=== PATIENT | female | born 1975 | race Caucasian/White ===

== ENCOUNTER 2018-09-17 15:43 | Emergency (ER) | payer OTHER, SELFPAY ==
[2018-09-17 15:49] VITALS: BP 151/77; PULSE 65; RESP 18; TEMP 36.3; O2SAT 97
--- NOTE | 2018-09-17 16:58 | W.ED.GENAD ---
Discharge Plan Disposition Patient Disposition: HOME Discharge Details Chief Complaint: Laceration Primary Care Provider: Mariely Edmonds ED Provider: Karlo Salgado Home Meds and New Rx's Prescriptions: New levofloxacin 500 mg tablet 500 mg PO DAILY Qty: 3 RF: 0 Continued estradiol-norethindrone acet [Activella] 1 EACH tablet 1 tab-cap PO DAILY Qty: 90 RF: 0 montelukast [Singulair] 10 MG tablet 10 mg PO DAILY RF: 0 ProAir HFA 8.5 GM HFA aerosol inhaler 8.5 gm Inhalation DIRECTED PRNRF: 0 Discharge Data Discharge Date/Time-TO BE ENTERED AT DEPARTURE: 09/17/18 17:16 Medical Decision Making Patient here for plantar puncture wound that occurred approximately 14 hours prior to arrival. Patient states intact toothpick was removed from the site but throughout the day swelling and pain has worsened. Bedside ultrasound was utilized to attempt to visualize any retained foreign body given that is non-radiopaque and none was able to be visualized. Did discuss with patient risk versus benefit of exploration of the wound for any potential foreign body which she refused exploration at this time so we agreed upon antibiotic therapy with close observation for patient to return. Patient placed up on Levaquin 500mg daily for 4 days. After discussion of diagnosis and plan of care patient has no further needs, questions, or concerns and states clear understanding to return to the emergency department for any worsening symptoms. HPI General Mode of arrival: ambulatory. Date/Time Provider Initiated Documentation: 09/17/18 16:10. Limitations to Documentation: no limitations. Information obtained by: patient and RN notes reviewed. History of Present Illness 43 year old F presents to the emergency department with the chief complaint of Right foot puncture wound, described as moderate, with intensity rated at 6. Quality is described as aching, and is localized to the right and lower extremity. Patient reports no radiation. Patient started experiencing this hour(s) (14) and it has been constant. No relieving factors improve symptom(s), No exacerbating factors reported . Patient notes no other symptoms.. Patient did receive the following treatments prior to arrival, none Related Data Home Medications Medication Instructions Recorded Confirmed ProAir HFA 8.5 gm INHALATION DIRECTED PRN 05/18/17 09/17/18 montelukast [Singulair] 10 mg PO DAILY 05/18/17 09/17/18 estradiol-norethindrone acet 1 tab-cap PO DAILY #90 tab 05/05/18 09/17/18 [Activella] levofloxacin 500 mg PO DAILY #3 tab 09/17/18 Previous Rx's Medication Instructions Recorded estradiol-norethindrone acet 1 tab-cap PO DAILY #90 tab 05/05/18 [Activella] levofloxacin 500 mg PO DAILY #3 tab 09/17/18 Allergies Allergy/AdvReac Type Severity Reaction Status Date / Time No Known Drug Allergies Allergy Unverified 09/17/18 15:53 General Stated Complaint: Laceration DESMOND: 4 Review of Systems Cardiovascular Denies syncope and Denies lightheadedness Musculoskeletal Reports as per HPI, Denies deformity, Reports limited range of motion and Denies numbness Integumentary/Breasts Reports as per HPI Neurologic Denies syncope and Denies numbness PFSH Social History Smoking/Tobacco Use Status: Never Exam Const General: cooperative and no acute distress Orientation: alert, awake and oriented x3 Limitations: mental status not altered Resp Effort & Inspection: normal respiratory effort and able to speak in complete sentences Cardio Rate: regular rate Rhythm: regular rhythm Extrem General: normal exam except as noted Right lower extremity: foot Details: normal capillary refill, tenderness Location: of the great toe Location: along the plantar aspect, abnormal ROM of toe Details: pain with active ROM Location: of the great toe, puncture wound (Base of great toe on the plantar surface), vascular exam Details: dorsalis pedis pulse present, posterior tibial pulse present and normal capillary refill and other (Patient does have swelling surrounding the base of great toe) Course Vital Signs Temperature 36.3 C L 09/17/18 15:49 Pulse 65 09/17/18 15:49 Respiratory Rate 18 09/17/18 15:49 Blood Pressure 151/77 H 09/17/18 15:49 Pulse Oximetry 97 09/17/18 15:49 Temperature 36.3 C L 09/17/18 15:49 Temperature Source Skin 09/17/18 15:49 Pulse 65 09/17/18 15:49 Respiratory Rate 18 09/17/18 15:49 Respiratory Effort 09/17/18 15:51 Blood Pressure 151/77 H 09/17/18 15:49 Blood Pressure Position Sitting 09/17/18 15:49 Pulse Oximetry 97 09/17/18 15:49 Pain Level 6 09/17/18 15:49 Comment 09/17/18 15:49
--- NOTE | 2018-09-17 17:01 | ED.GENADUL_ITS ---
Discharge Plan Disposition Patient Disposition: HOME Discharge Details Chief Complaint: Laceration Primary Care Provider: Mariely Edmonds ED Provider: Karlo Salgado Home Meds and New Rx's Prescriptions: New levofloxacin 500 mg tablet 500 mg PO DAILY Qty: 3 RF: 0 Continued estradiol-norethindrone acet [Activella] 1 EACH tablet 1 tab-cap PO DAILY Qty: 90 RF: 0 montelukast [Singulair] 10 MG tablet 10 mg PO DAILY RF: 0 ProAir HFA 8.5 GM HFA aerosol inhaler 8.5 gm Inhalation DIRECTED PRNRF: 0 Discharge Data Discharge Date/Time-TO BE ENTERED AT DEPARTURE: 09/17/18 17:16 Medical Decision Making Patient here for plantar puncture wound that occurred approximately 14 hours prior to arrival. Patient states intact toothpick was removed from the site but throughout the day swelling and pain has worsened. Bedside ultrasound was ut ilized to attempt to visualize any retained foreign body given that is non- radiopaque and none was able to be visualized. Did discuss with patient risk versus benefit of exploration of the wound for any potential foreign body which she refused exploration at this time so we agreed upon antibiotic therapy with close observation for patient to return. Patient placed up on Levaquin 500mg daily for 4 days. After discussion of diagnosis and plan of care patient has no further needs, questions, or concerns and states clear understanding to return to the emergency department for any worsening symptoms. HPI General Mode of arrival: ambulatory . Date/Time Provider Initiated Documentation: 09/17/18 16:10 . Limitations to Documentation: no limitations . Information obtained by: patient and RN notes reviewed . History of Present Illness 43 year old F presents to the emergency department with the chief complaint of Right foot puncture wound, described as moderate, with intensity rated at 6. Quality is described as aching, and is localized to the right and lower extremity. Patient reports no radiation. Patient started experiencing this hour(s) (14) and it has been constant. No relieving factors improve symptom(s), No exacerbating factors reported . Patient notes no other symptoms.. Patient did receive the following treatments prior to arrival, none Related Data Home Medications Medication Instructions Recorded Confirmed ProAir HFA 8.5 gm INHALATION DIRECTED PRN 05/18/17 09/17/18 montelukast [Singulair] 10 mg PO DAILY 05/18/17 09/17/18 estradiol-norethindrone acet 1 tab-cap PO DAILY #90 tab 05/05/18 09/17/18 [Activella] levofloxacin 500 mg PO DAILY #3 tab 09/17/18 Previous Rx's Medication Instructions Recorded estradiol-norethindrone acet 1 tab-cap PO DAILY #90 tab 05/05/18 [Activella] levofloxacin 500 mg PO DAILY #3 tab 09/17/18 Allergies Allergy/AdvReac Type Severity Reaction Status Date / Time No Known Drug Allergies Allergy Unverified 09/17/18 15:53 General Stated Complaint: Laceration DESMOND: 4 Review of Systems Cardiovascular Denies syncope and Denies lightheadedness Musculoskeletal Reports as per HPI, Denies deformity, Reports limited range of motion and Denies numbness Integumentary/Breasts Reports as per HPI Neurologic Denies syncope and Denies numbness PFSH Social History Smoking/Tobacco Use Status: Never Exam Const General: cooperative and no acute distress Orientation: alert, awake and oriented x3 Limitations: mental status not altered Resp Effort & Inspection: normal respiratory effort and able to speak in complete sentences Cardio Rate: regular rate Rhythm: regular rhythm Extrem General: normal exam except as noted Right lower extremity: foot Details: normal capillary refill, tenderness Location: of the great toe Location: along the plantar aspect, abnormal ROM of toe Details: pain with active ROM Location: of the great toe, puncture wound (Base of great toe on the plantar surface), vascular exam Details: dorsalis pedis pulse present, posterior tibial pulse present and normal capillary refill and other (Patient does have swelling surrounding the base of great toe) Course Vital Signs Temperature 36.3 C L 09/17/18 15:49 Pulse 65 09/17/18 15:49 Respiratory Rate 18 09/17/18 15:49 Blood Pressure 151/77 H 09/17/18 15:49 Pulse Oximetry 97 09/17/18 15:49 Temperature 36.3 C L 09/17/18 15:49 Temperature Source Skin 09/17/18 15:49 Pulse 65 09/17/18 15:49 Respiratory Rate 18 09/17/18 15:49 Respiratory Effort 09/17/18 15:51 Blood Pressure 151/77 H 09/17/18 15:49 Blood Pressure Position Sitting 09/17/18 15:49 Pulse Oximetry 97 09/17/18 15:49 Pain Level 6 09/17/18 15:49 Comment 09/17/18 15:49
[2018-09-17 17:09] VITALS: PULSE 71; RESP 16; TEMP 36.3
== END 2018-09-17 17:16 | disposition home or self-care (01) ==
PROVIDERS: Emergency Provider Nurse Practitioner Family; PCP Nurse Practitioner Family
DX: S91.331A Puncture wound without foreign body, right foot, initial encounter (principal); W45.8XXA Other foreign body or object entering through skin, initial encounter
CPT/HCPCS: 99284

== ENCOUNTER 2019-02-23 07:03 | Emergency (ER) | payer OTHER, SELFPAY ==
[2019-02-23 07:08] VITALS: BP 143/78; PULSE 85; RESP 18; TEMP 37.1; O2SAT 94
--- NOTE | 2019-02-23 07:15 | ED.GENADUL_ITS ---
Discharge Plan Disposition Patient Disposition: HOME Condition: Good Discharge Details Chief Complaint: Orthopedic Clinical Impression: Injury of knee, right Primary Care Provider: Elfego Escoto ED Provider: Claudio Bailon Home Meds and New Rx's Prescriptions: New ibuprofen 600 mg tablet 600 mg PO TID-QID PRN (Reason: pain) Qty: 20 RF: 0 Continued estradiol-norethindrone acet [Activella] 1 EACH tablet 1 tab-cap PO DAILY Qty: 90 RF: 0 montelukast [Singulair] 10 MG tablet 10 mg PO DAILY RF: 0 albuterol sulfate [ProAir HFA] 8.5 GM HFA aerosol inhaler 8.5 gm Inhalation DIRECTED PRNRF: 0 Discharge Instructions Additional Instructions: Wear knee immobilizer at all times until follow-up. Crutches and weight-bear as tolerated. Ice, elevation, ibuprofen. Follow-up with primary care or orthopedics in 1 week for reevaluation. Return to ED for any numbness, weakness, worsening pain and inability to ambulate. Referrals: [facility] [Provider Group] Elfego Escoto, RADIOLOGICAL HEALTH SPECIALIST [Primary Care Provider] - Medical Decision Making Will give Motrin for pain. Will obtain x-ray but suspect meniscal injury. Cannot perform ligamentous exam due to pain and discomfort. If x-rays negative will plan knee immobilizer and crutches and weight-bear as tolerated. Follow-up with primary care or orthopedics if not significantly better in the next week or so. X-rays look negative to my review other than narrowing of the medial compartment. There is no obvious fracture. Radiology read pending. Will place a knee immobilizer and give crutches and prepare for discharge assuming negative radiology read. HPI General Mode of arrival: wheelchair . Date/Time Provider Initiated Documentation: 02/23/19 07:12 . Limitations to Documentation: no limitations . Information obtained by: patient . HPI Narrative: Patient presents to ED with right knee pain and swelling. Patient was chasing her puppy who just escaped outside. She felt a pop in her knee and had pain. When she caught the puppy and was trying to take him back to the house, she felt another pop and actually fell to the ground. She did not get injured with the fall. She has not really been able to bear weight without support. She did drive herself here. Related Data Home Medications Medication Instructions Recorded Confirmed albuterol sulfate [ProAir HFA] 8.5 gm INHALATION DIRECTED PRN 05/18/17 02/23/19 montelukast [Singulair] 10 mg PO DAILY 05/18/17 02/23/19 estradiol-norethindrone acet 1 tab-cap PO DAILY #90 tab 05/05/18 02/23/19 [Activella] ibuprofen 600 mg PO TID-QID PRN #20 tab 02/23/19 Previous Rx's Medication Instructions Recorded estradiol-norethindrone acet 1 tab-cap PO DAILY #90 tab 05/05/18 [Activella] ibuprofen 600 mg PO TID-QID PRN #20 tab 02/23/19 Allergies Allergy/AdvReac Type Severity Reaction Status Date / Time No Known Drug Allergies Allergy Unverified 02/23/19 07:11 General Stated Complaint: Orthopedic DESMOND: 3 Review of Systems Constitutional Denies weakness Musculoskeletal Denies numbness and Denies tingling Comments: knee pain/injury Integumentary/Breasts Denies wounds Neurologic Denies numbness, Denies tingling and Denies weakness [facility] Medical History Asthma (Chronic) GERD (gastroesophageal reflux disease) (Chronic) Migraine (Chronic) Abnormal uterine bleeding (Resolved) Menorrhagia (Resolved) Shoulder pain, left (Resolved) Surgical History S/P cholecystectomy (Chronic) S/P hysterectomy (Chronic) History of section (Inactive) Social History Smoking/Tobacco Use Status: Never Alcohol Intake: current Alcohol Intake frequency: holidays/special occasions only Drug use: Never Substance use type: does not use Do you feel safe at home: Yes Do you feel safe in your relationship?: Yes Exam Narrative Exam Narrative: Vitals: Afebrile. Mildly elevated blood pressure. Const: Obese female in NAD. HEENT: NC/AT. Normal facial exam. Neck: Supple. Trachea midline. Lungs: Normal respiratory effort. Neuro: A+O x 3. CN grossly in tact. Good strength and no focal deficit. Ext: No C/C/E. Right knee with limited ROM due to pain. Tender along medial aspect. Able to lift leg of bed. NVI distal. Skin: Warm and dry without abrasion/lacs. Course Vital Signs Temperature 98.8 F 02/23/19 07:08 Pulse 85 02/23/19 07:08 Respiratory Rate 18 02/23/19 07:08 Blood Pressure 143/78 H 02/23/19 07:08 Pulse Oximetry 94 L 02/23/19 07:08 Temperature 98.8 F 02/23/19 07:08 Temperature Source Temporal Artery Scan 02/23/19 07:08 Pulse 85 02/23/19 07:08 Respiratory Rate 18 02/23/19 07:08 Respiratory Effort Non-Labored 02/23/19 07:08 Blood Pressure 143/78 H 02/23/19 07:08 Pulse Oximetry 94 L 02/23/19 07:08 Oxygen Delivery Method Room Air 02/23/19 07:08 Oxygen Flow Rate 0 02/23/19 07:08 Pain Level 8 02/23/19 07:11
--- NOTE | 2019-02-23 07:17 | DI.RAD_ITS ---
SYMPTOM/DIAGNOSIS: TRAUMA, PAIN RIGHT KNEE: No fracture or joint effusion is seen. There are mild degenerative changes. IMPRESSION: No acute abnormality.
[2019-02-23] MEDS: Ibuprofen 600 MG TAB PO (07:27)
--- NOTE | 2019-02-23 08:08 | DI.VRAD_ITS ---
EXAM: XR Right Knee EXAM DATE/TIME: 02/23/2019 7:18 AM CLINICAL HISTORY: 43 years old, female; Injury or trauma; Fall; Initial encounter; Sprain or strain; Patella or knee; Right TECHNIQUE: Imaging protocol: XR Right knee. Views: 3 views. COMPARISON: No relevant prior studies available. FINDINGS: Bones/joints: Normal. Soft tissues: Normal. IMPRESSION: No acute findings. Dictated and Authenticated by: Maxwell Orta MD. Ordering:MOLLY Snyder MD
[2019-02-23 10:17] VITALS: BP 143/78; PULSE 85; RESP 18; TEMP 37.1; O2SAT 94
== END 2019-02-23 08:14 | disposition home or self-care (01) ==
PROVIDERS: Emergency Provider Emergency Medicine; PCP Nurse Practitioner Family
DX: M25.561 Pain in right knee (principal); X50.9XXA Other and unspecified overexertion or strenuous movements or postures, initial encounter; W01.0XXA Fall on same level from slipping, tripping and stumbling without subsequent striking against object, initial encounter
CPT/HCPCS: 29505; 73562; 99283; 99282; E0114; L1830

== ENCOUNTER 2019-05-05 14:37 | Outpatient (CLI) | payer OTHER, SELFPAY ==
[2019-05-05 15:21] LABS: HCT 42.5 % (36.0-46.0); HGB 13.8 g/dL (12.0-15.5); Mean Corp. HGB Concentration 32.5 g/dL (32.0-36.0); Mean Corpuscular Hemoglobin 29.4 pg (27.0-33.0); Mean Corpuscular Volume 90.4 fL (80-95); Platelet Count 343 x1000/uL (130-400); RBC Distribution Width 13.8 % (11.7-14.6); White Blood Cell Count 5.78 k/cumm (4.4-10.8)
[2019-05-05 16:30] LABS: Anion Gap 9.8 mmol/L (3-11); BUN 12 mg/dL (7-18); C-Reactive Protein 1.83 mg/dL (0.0-0.3); CO2 28.2 mmol/L (21.0-32.0); CREATININE 0.84 mg/dL (0.55-1.02); Calcium 9.7 mg/dL (8.5-10.1); Chloride 104 mmol/L (98-107); Glucose 127 mg/dL (70-100); Potassium 3.9 mmol/L (3.5-5.1); Sodium 142 mmol/L (136-145)
[2019-05-06 10:59] LABS: Rheumatoid Factor <8 IU/mL (<12.5)
[2019-05-06 12:52] LABS: Lyme Ab w Rflx to Lyme Confirm Negative
[2019-05-06 14:13] LABS: ANA Interpretation Positive (NEGAT); ANA Titer Pattern SEE COMMENTS
[2019-05-07 00:19] LABS: Anaplasma phagocytophilum Negative (Negative); B. miyamotoi PCR Negative (Negative); Babesia divergens/MO-1 Negative (Negative); Babesia duncani Negative (Negative); Babesia microti Negative (Negative); Ehrlichia chaffeensis Negative (Negative); Ehrlichia ewingii/canis Negative (Negative); Ehrlichia muris eauclairensis Negative (Negative)
== END 2019-05-05 14:57 ==
PROVIDERS: PCP Nurse Practitioner Family; Visit Provider Nurse Practitioner Family
DX: M25.50 Pain in unspecified joint (principal); R53.83 Other fatigue
CPT/HCPCS: 36415; 80048; 85027; 87798; 86038; 86140; 86431; 86618

== ENCOUNTER 2019-05-12 17:53 | Outpatient (REF) | payer OTHER, SELFPAY ==
--- NOTE | 2019-05-12 15:45 | PAPFT_PTH ---
PATIENT: Minnie Osman LOC: [facility] U#:[id number] AGE/SX: 43/F ROOM: RE05/12/[address]: Delia Francis : 1975 BED: DIS: 05/12/2019 SPEC #: [id number] RECD: 05/12/19 17:58 STATUS: PRISCILLA REMadison #: [id number] NICO: 05/12/19 15:[address]: Delia Francis DEPT: [facility] Cytology RECD BY: Aleena Flores Tissues: 1 - CX/ENDOCX FOR PAP SMEARS Procedures: PAP THIN PREP/UVM Screening HPV DNA PROBE Comments: [id number]
== END 2019-05-12 18:13 ==
LOC: NCHCN 17:53
PROVIDERS: PCP Nurse Practitioner Family; Visit Provider Nurse Practitioner Family
DX: Z00.00 Encounter for general adult medical examination without abnormal findings (principal); Z12.4 Encounter for screening for malignant neoplasm of cervix; Z11.51 Encounter for screening for human papillomavirus (HPV)
CPT/HCPCS: 88142; 87624

== ENCOUNTER 2020-06-14 19:40 | Outpatient (REF) | payer OTHER, SELFPAY ==
[2020-06-15 23:48] LABS: COVID-19 RT-PCR Result NEGATIVE (Negative)
== END 2020-06-14 20:00 ==
LOC: NCHCN 19:40
PROVIDERS: PCP Nurse Practitioner Family; Visit Provider Physician Assistant
DX: Z11.59 Encounter for screening for other viral diseases (principal)
CPT/HCPCS: U0003

== ENCOUNTER 2020-07-11 16:45 | Outpatient (REF) | payer OTHER, SELFPAY ==
[2020-07-14 00:17] LABS: COVID-19 RT-PCR Result NEGATIVE (Negative)
== END 2020-07-11 17:05 ==
LOC: NCHCN 16:45
PROVIDERS: PCP Nurse Practitioner Family; Visit Provider Nurse Practitioner Family
DX: R09.81 Nasal congestion (principal)
CPT/HCPCS: U0003

== ENCOUNTER 2020-07-24 07:45 | Outpatient (REF) | payer OTHER, SELFPAY ==
[2020-07-24 13:00] LABS: BUN 10 mg/dL (7-18); CREATININE 0.93 mg/dL (0.55-1.02); Calcium 9.2 mg/dL (8.5-10.1); Chloride 104 mmol/L (98-107); Glucose 101 mg/dL (74-106); Sodium 141 mmol/L (136-145); TSH (W/Ref FT4) 1.61 uIU/mL (0.36-3.74)
[2020-07-24 14:32] LABS: Calculated LDL 188 mg/dL (<100); Cholesterol 261 mg/dL (<200); HDL Cholesterol 49 mg/dL (40-60); Triglyceride 123 mg/dL (<150)
== END 2020-07-24 08:05 ==
LOC: NCHCN 07:45
PROVIDERS: PCP Nurse Practitioner Family; Visit Provider Nurse Practitioner Family
DX: Z00.00 Encounter for general adult medical examination without abnormal findings (principal); R53.83 Other fatigue; E78.5 Hyperlipidemia, unspecified; R03.0 Elevated blood-pressure reading, without diagnosis of hypertension; M25.519 Pain in unspecified shoulder; J45.40 Moderate persistent asthma, uncomplicated; Z68.41 Body mass index [BMI] 40.0-44.9, adult; M25.50 Pain in unspecified joint
CPT/HCPCS: 80048; 80061; 84443

== ENCOUNTER 2020-07-25 16:46 | Outpatient (REF) | payer OTHER, SELFPAY ==
[2020-07-29 18:12] LABS: Patient Race White; SARS-CoV-2 RNA Undetected (Undetected); SARS-CoV-2 Specimen Source Nasal
== END 2020-07-25 17:06 ==
LOC: NCHCN 16:46
PROVIDERS: PCP Nurse Practitioner Family; Visit Provider Nurse Practitioner Family
DX: R09.81 Nasal congestion (principal)
CPT/HCPCS: U0003

== ENCOUNTER 2020-08-21 08:25 | Outpatient (REF) | payer OTHER, SELFPAY ==
[2020-08-24 22:11] LABS: Patient Race White; SARS-CoV-2 RNA Undetected (Undetected); SARS-CoV-2 Specimen Source Nasal
== END 2020-08-21 08:45 ==
LOC: NCHCN 08:25
PROVIDERS: PCP Nurse Practitioner Family; Visit Provider Nurse Practitioner Family
DX: Z11.59 Encounter for screening for other viral diseases (principal)
CPT/HCPCS: U0003

== ENCOUNTER 2021-07-16 14:39 | Outpatient (REF) | payer OTHER, SELFPAY ==
[2021-07-17 13:57] LABS: COVID-19 RT-PCR UVMMC Result Negative (Negative)
== END 2021-07-16 14:40 | disposition home or self-care (01) ==
LOC: LBN 14:39
PROVIDERS: PCP Nurse Practitioner Family; Visit Provider Nurse Practitioner Family
DX: Z20.822 Contact with and (suspected) exposure to COVID-19 (principal); J06.9 Acute upper respiratory infection, unspecified
CPT/HCPCS: U0003

== ENCOUNTER 2021-11-22 20:00 | Emergency (ER) | payer OTHER, SELFPAY ==
[2021-11-22 20:05] VITALS: BP 185/94; PULSE 67; RESP 18; TEMP 36.2; O2SAT 98
--- NOTE | 2021-11-22 20:35 | ED.GENADUL_ITS ---
Discharge Plan Disposition Patient Disposition: HOME Condition: Good Discharge Details Clinical Impression: Contusion of nose, Head injury, Contusion, Concussion Primary Care Provider: Delia Francis ED Provider: Aleena Rubio Home Meds and New Rx's Prescriptions: Continued estradiol-norethindrone acet [Activella] 1 EACH tablet 1 tab-cap PO DAILY Qty: 90 0RF Rx Instructions: 1 tab PO daily for surgical menopause montelukast [Singulair] 10 MG tablet 10 mg PO DAILY 0RF albuterol sulfate [ProAir HFA] 8.5 GM HFA aerosol inhaler 8.5 gm Inhalation DIRECTED PRN0RF ibuprofen 600 mg tablet 600 mg PO TID-QID PRN (Reason: pain) Qty: 20 0RF duloxetine 60 mg capsule,delayed release(DR/EC) 60 mg PO DAILY 0RF Label Comments: TAKE 1 CAPSULE BY MOUTH DAILY Discharge Instructions Instructions: Concussion (ED), Head Injury (ED) Additional Instructions: Please take ibuprofen and Tylenol as needed for discomfort Be prepared to be more uncomfortable tomorrow Keep your wound clean and dry Follow-up with ENT once the swelling in your nose resolved if it is not nicely aligned If you have persistent vomiting, worsening headache, vision change, or dizziness you must return for reassessment and possible imaging at that time I suspect you have a concussion given your symptoms, do not operate your vehicle, or attempt any activities where you may lose your balance and harm yourself with climbing a ladder Referrals: Delia Francis [Primary Care Provider] - Fazal Crandall MD [ [facility] STAFF PHYSICIAN] - Discharge Data Discharge Date/Time-TO BE ENTERED AT DEPARTURE: 11/22/21 20:50 Medical Decision Making GCS 15, mild headache that is not worsening Abrasions, tetanus up-to-date She may have a nasal bone fracture, no indication for emergent imaging Warfarin to ENT Return precautions discussed Concussion precautions discussed No additional visible evidence of trauma Left knee with tenderness, range of motion intact, neurovascularly intact Ambulatory steady gait Return precautions discussed and patient understanding Medical Records Medical records reviewed: Yes I reviewed the patient's medical records. HPI General Date/Time Provider Initiated Documentation: 11/22/21 20:11 . HPI Narrative: This very pleasant and otherwise healthy 46-year-old female presents status post slip and fall on ice. She fell forward, hitting her head on the pavement. There was no reported loss of consciousness. She has some mild tenderness to her forehead and the bridge of her nose. She denies any epistaxis. She denies any neck pain, loss of consciousness. She denies any chance of . She denies any dizziness or vision change. She has a mild headache that is not worsening and frontal over the area of the injury. She denies any additional required injuries and states that her tetanus is up-to-date. She denies any strength or sensation change. Related Data Home Medications Medication Instructions Recorded Confirmed albuterol sulfate 90 mcg/actuation 8.5 gm INHALATION DIRECTED PRN 05/18/17 11/22/21 aerosol inhaler (ProAir HFA) montelukast 10 mg tablet 10 mg PO DAILY 05/18/17 11/22/21 (Singulair) estradiol-norethindrone acet 1 1 tab-cap PO DAILY #90 tab 05/05/18 02/23/19 mg-0.5 mg tablet (Activella) ibuprofen 600 mg tablet 600 mg PO TID-QID PRN #20 tab 02/23/19 11/22/21 duloxetine 60 mg capsule,delayed 60 mg PO DAILY 11/22/21 11/22/21 release Previous Rx's Medication Instructions Recorded estradiol-norethindrone acet 1 1 tab-cap PO DAILY #90 tab 05/05/18 mg-0.5 mg tablet (Activella) ibuprofen 600 mg tablet 600 mg PO TID-QID PRN #20 tab 02/23/19 Allergies Allergy/AdvReac Type Severity Reaction Status Date / Time No Known Drug Allergies Allergy Verified 11/22/21 20:08 General Stated Complaint: HeadInjury DESMOND: 4 Review of Systems All systems reviewed & are unremarkable except as noted in HPI and below PFSH All Active Problems (Updated 11/22/21 @ 20:39 by FELIPA Jimenez) Contusion of nose (Acute) Head injury (Acute) Contusion (Acute) Concussion (Acute) Polyarthralgia (Chronic) 10/2019. Consult at [facility]. No evidence of autoimmune disease-labs pending Medical History (Updated 11/22/21 @ 20:39 by FELIPA Jimenez) Abnormal uterine bleeding Asthma GERD (gastroesophageal reflux disease) Menorrhagia Migraine Shoulder pain, left Surgical History History of section S/P cholecystectomy S/P hysterectomy Social History Smoking/Tobacco Use Status: Never Smoking risk assessment performed?: Yes Alcohol Intake: current Alcohol Intake frequency: holidays/special occasions only Drug use: Never Substance use type: does not use Do you feel safe at home: Yes Do you feel safe in your relationship?: Yes Exam Const General: cooperative, comfortable and no acute distress [facility] Head images: 1. Abrasion noted, hematoma forehead No raccoon eyes, no hemotympanum Throat: uvula midline Other: no hemotympanum Eyes Pupils: PERRL EOM: EOM intact bilaterally Neck Other: No midline tenderness Chest Chest: normal inspection of the chest Resp Effort & Inspection: normal respiratory effort Cardio Rate: regular rate GI Inspection: normal to inspection Other: No abdominal tenderness Skin General skin exam: no rashes or lesions noted Neuro General: patient alert and patient oriented x3 Cranial Nerves: PERRL Other: GCS 15 ambulatory with steady gait Extrem General: normal to inspection Other: Left knee with tenderness, small abrasion, range of motion intact, distal pulses intact, no tenderness, left hip without tenderness, left ankle without tenderness Course Vital Signs Vital signs: Vital Signs Temperature 36.2 C L 11/22/21 20:05 Pulse 67 11/22/21 20:05 Respiratory Rate 18 11/22/21 20:05 Blood Pressure 185/94 H 11/22/21 20:05 Pulse Oximetry 98 11/22/21 20:05 Temperature 36.2 C L 11/22/21 20:05 Temperature Source Skin 11/22/21 20:05 Pulse 67 11/22/21 20:05 Respiratory Rate 18 11/22/21 20:05 Respiratory Effort Non-Labored 11/22/21 20:13 Respiratory Depth Normal 11/22/21 20:13 Respiratory Pattern Normal 11/22/21 20:13 Blood Pressure 185/94 H 11/22/21 20:05 Pulse Oximetry 98 11/22/21 20:05 Pain Level 6 11/22/21 20:13
[2021-11-22 20:43] VITALS: BP 144/94; PULSE 64; RESP 16; O2SAT 97
== END 2021-11-22 20:50 | disposition home or self-care (01) ==
PROVIDERS: Emergency Provider Physician Assistant; PCP Nurse Practitioner Family
DX: S06.0X0A Concussion without loss of consciousness, initial encounter (principal); S00.33XA Contusion of nose, initial encounter; W00.0XXA Fall on same level due to ice and snow, initial encounter; R40.2412 Glasgow coma scale score 13-15, at arrival to emergency department
CPT/HCPCS: 99282; 99283

== ENCOUNTER 2023-03-26 16:33 | Outpatient (REF) | payer BC, SELFPAY ==
[2023-03-26 16:58] LABS: ESR 36 mm/hr (0-20)
[2023-03-26 17:43] LABS: ALT 44 U/L (14-59); AST 21 U/L (15-37); Albumin 3.7 g/dL (3.4-5.0); Alkaline Phosphatase 118 U/L (46-116); Anion Gap 10.2 mmol/L (3-11); BUN 12 mg/dL (7-18); Bilirubin, Total 0.6 mg/dL (0.2-1.0); CO2 26.8 mmol/L (21.0-32.0); CREATININE 0.9 mg/dL (0.55-1.02); Calcium 9.3 mg/dL (8.5-10.1); Calculated LDL 187 mg/dL (<100); Chloride 104 mmol/L (98-107); Cholesterol 265 mg/dL (<200); Estimated GFR 78.86 (mL/min/1.73m2); Glucose 91 mg/dL (74-106); HDL Cholesterol 46 mg/dL (40-60); Potassium 4.4 mmol/L (3.5-5.1); Sodium 141 mmol/L (136-145); TSH (W/Ref FT4) 1.59 uIU/mL (0.36-3.74); Total Protein 7.5 g/dL (6.4-8.2); Triglyceride 164 mg/dL (<150)
== END 2023-03-26 16:34 | disposition home or self-care (01) ==
LOC: NCHCN 16:33
PROVIDERS: PCP Nurse Practitioner Family; Visit Provider Nurse Practitioner Family
DX: E78.5 Hyperlipidemia, unspecified (principal); I10 Essential (primary) hypertension; R53.83 Other fatigue; M25.50 Pain in unspecified joint; F43.20 Adjustment disorder, unspecified
CPT/HCPCS: 80053; 80061; 85652; 84443; 86140

== ENCOUNTER 2023-04-17 11:57 | Day surgery (SDC) | payer BC, SELFPAY ==
--- NOTE | 2023-04-16 21:38 | W.PM.DSUDISC ---
Date of service: 04/17/23 Time of Service: 13:18 Discharge Plan Disposition Patient Disposition: Home Condition: Good Discharge Details Reason For Visit: colon can screening Attending Provider: Esha Nicole Primary Care Provider: Delia Francis Home Meds and New Rx's Prescriptions: Continued omeprazole 40 mg capsule,delayed release(DR/EC) 40 mg PO DAILY fluticasone propion-salmeterol [Advair Diskus] 500-50 mcg/dose blister with device 1 inh inhalation BID cholecalciferol (vitamin D3) 25 mcg (1,000 unit) capsule 25 mcg PO DAILY montelukast [Singulair] 10 MG tablet 10 mg PO DAILY albuterol sulfate [ProAir HFA] 8.5 GM HFA aerosol inhaler 8.5 gm Inhalation DIRECTED PRN ibuprofen 600 mg tablet 600 mg PO TID-QID PRN (Reason: pain) Qty: 20 0RF duloxetine 60 mg capsule,delayed release(DR/EC) 60 mg PO DAILY Patient Comments: TAKE 1 CAPSULE BY MOUTH DAILY Discontinued bisacodyl [Dulcolax (bisacodyl)] 5 mg tablet,delayed release (DR/EC) 5 mg PO ONCE Qty: 4 0RF Rx Instructions: Take per colonoscopy instructions provided by ordering providers office polyethylene glycol 3350 17 gram/dose powder 17 g PO ONCE Qty: 238 0RF Rx Instructions: Take per colonoscopy instructions provided by ordering providers office Discharge Instructions Additional Instructions: DSU Colonoscopy Post-Op Instructions Instructions for Everyone who is given Anesthesia: For your safety, please do the following for the next twenty-four (24) hours: *Do Not operate a motor vehicle (car, truck, motorcycle, etc.) *Do Not drink alcoholic beverages or use any recreational drugs for the first 24 hours or while taking pain medications. The medications in your body may have a reaction that can be dangerous. *Do Not make any important decisions or sign any important papers. Findings: -diverticula: Make sure you are moving your bowels on a regular basis and you are not straining to go to the bathroom. If you find that you are having issues with constipation or straining, then I do recommend you start a fiber supplement such as Metamucil. Follow up: Repeat colon scope in 10 yrs time. 1. No lifting over 20 pounds or strenuous activity for the first 24 hours after your procedure. After 24 hours there are no restrictions on your activity but you may feel fatigued for a few days. 2. After you arrive home you may have a light meal and return to your normal diet as you can tolerate it without feeling sick to your stomach. 3. You may have a bloated, gaseous feeling in your belly (abdomen) after a colonoscopy. Passing gas and belching will help. Walking or lying down on your left side with your knees flexed may relieve the discomfort. Call the office at [phone] (Office) or [phone] (Hospital) right away if you notice any of the following: a.Vomiting of blood or ?coffee ground stools?. b.Rectal bleeding 1Tbsp, blood clots or continuous bleeding. c.Severe belly (abdominal) pain. d.A hard distended belly (abdomen) and an inability to pass gas. 4. Please don?t expect to have a normal BM (bowel movement) for 2-3 days after your procedure. 5. If there are questions regarding the findings of your procedure, please contact your doctor 6. If you are unable to contact your doctor with a problem, contact the hospital at [phone]. 7. Continue all your regular medications unless directed otherwise. I understand the above instructions and have no questions. Signature of Patient or Adult Escort Name of Responsible Adult Escort Signature of Nurse Date/Time Activity:: see above Diet:: see above Discharge Orders Discharge Orders: Discharge Order (Routine); Ordered 04/17/23 Ordered By: Esha Nicole DS: Diagnosis Discharge Diagnosis (1) Hyperlipidemia: Status: Acute (2) Grief: Status: Chronic (3) Screening for colon cancer: Status: Acute Asessment and Plan: [place] Note/Eval The patient is seen and examined after their colonoscopy.? The patient has been able to pass gas.? They are not having abdominal pain.? They have been able to tolerate liquids and a snack.? They do not have any nausea or vomiting.? They are not having any chest pain or shortness of breath.??? They are not having any rectal bleeding. Their vital signs have been stable-see nursing notes. We discussed findings during their colonoscopy, and any biopsies that were done/polyps that were removed. The patient will be sent a letter with any biopsy results, and when to repeat the colonoscopy.-see discharge instructions. Patient was given explicit instructions to follow-up regarding colonoscopy-refer to discharge instructions.? We reviewed resumption of medications. Patient verbalized understanding and discharged in stable and satisfactory condition- See nursing notes. (4) Polyarthralgia: Status: Chronic (5) Asthma: (6) GERD (gastroesophageal reflux disease): (7) Menorrhagia: (8) Screening for malignant neoplasm of colon performed: Status: Acute (9) Diverticula of colon: Status: Acute
--- NOTE | 2023-04-16 21:42 | W.COLOREPORT ---
Date of service: 04/17/23 Time of Service: 13:18 Colonoscopy Report Date of procedure: 04/17/23 Pre-op diagnosis general: colon cancers screening Post-op diagnosis procedure note: other (diverticula ) Surgeon: Esha Nicole Anesthesia Type: General LMA/ETT Complications: None Disposition: same day Prep: Miralax/Dulcolax Retraction Time: 9 Procedure Description: After informed consent was obtained the patient was taken to the procedure room and placed in a left decubitous position. Monitors were applied and a time out was done. The patients name, date of , procedure, allergies to medications and metal in their body was reviewed. The patient was then sedated. Once sedated and comfortable a rectal exam was done. External exam was normal. Internal exam revealed a normal sphincter tone and no palpable masses. The scope was then introduced and retrofelexed. No without internal hemorrhoids were identified. The scope was then advanced to the cecum BBPS 2 in all segments for total of 6 difficulty. The TI and appendiceal orifice were identified. The prep was 9. The scope was then slowly retracted over 9 minutes back into the rectum. No polyps or AVMs are identified. The mucosa is pink and healthy with a normal vascular pattern. She does have small diverticula confined to the left colon. There is no signs of active bleeding or infection.. The scope was removed and the patient was woken up and taken back to Same day surgery in stable condition. The patient tolerated the procedure well and there were no immediate complications. Follow up: The patient should follow up in 10 years unless they develop changes in bowel habits or other new gastrointestinal complaints.
[2023-04-17 12:06] VITALS: BP 135/83; PULSE 86; RESP 18; TEMP 35.9; O2SAT 94
--- NOTE | 2023-04-17 12:10 | ANES.PREOP_ITS ---
General Info Date of Service Date Performed: 04/17/23 Height: 5 ft 6 in Weight: 131.088 kg Body Mass Index (BMI): 46.6 Surgical Procedure: Operation Date: 04/17/23 12:20 Proposed Procedure Side Surgeon p Colonoscopy Esha Nicole DO Pre-Op Diagnosis Post-Op Diagnosis colon can screening Meds Allergies and Home Medications Allergies Allergy/AdvReac Type Severity Reaction Status Date / Time No Known Drug Allergies Allergy Verified 04/15/23 13:48 Home Medication Medication Instructions Recorded albuterol sulfate 90 mcg/actuation 8.5 gm inhalation DIRECTED PRN 05/18/17 aerosol inhaler (ProAir HFA) montelukast 10 mg tablet 10 mg PO DAILY 05/18/17 (Singulair) ibuprofen 600 mg tablet 600 mg PO TID-QID PRN pain #20 tabs 02/23/19 duloxetine 60 mg capsule,delayed 60 mg PO DAILY 11/22/21 release cholecalciferol (vitamin D3) 25 25 mcg PO DAILY 09/01/22 mcg (1,000 unit) capsule fluticasone 500 mcg-salmeterol 50 1 inh inhalation BID 09/01/22 mcg/dose blistr powdr for inhalation (Advair Diskus) omeprazole 40 mg capsule,delayed 40 mg PO DAILY 09/01/22 release Current Visit Medications: Current Medications Generic Name Dose Route Start Last Admin Trade Name Freq PRN Reason Stop Dose Admin Hyoscyamine Sulfate 0.125 mg 04/17/23 09:33 Hyoscyamine 0.125 Mg Sl/Oral/Chew SL 05/17/23 09:32 DIRECTED PRN Ringer's Solution 1,000 mls @ 80 mls/hr 04/17/23 06:00 IV 05/16/23 23:59 INFUSION [facility] IV Miscellaneous Supplies 1 each 04/17/23 06:00 Iv Access IV 05/16/23 23:59 DIRECTED RADHA Ondansetron HCl 4 mg 04/17/23 09:33 Ondansetron 4 Mg/2 Ml Vial IVP 05/17/23 09:32 Q4H PRN PRN Nausea / Vomiting Sodium Chloride 0 ml 04/17/23 06:00 Normal Saline Flush 10 Ml Syr IV 05/16/23 23:59 PRN PRN Sodium Chloride 0 ml 04/17/23 06:00 Normal Saline 10 Ml Vial IJ 05/16/23 23:59 DIRECTED PRN Sterile Water 0 ml 04/17/23 06:00 Water,Injection,Sterile 10 Ml Vial IJ 05/16/23 23:59 DIRECTED PRN PFSH Active Problems Active Problems: Problem Status Onset Code Screening for malignant neoplasm of colon performed Z12.11 Hyperlipidemia E78.5 Grief F43.21 Screening for colon cancer Z12.11 Polyarthralgia M25.50 Medical History Medical History (Updated 04/16/23 @ 21:40 by Esha Nicole DO) Abnormal uterine bleeding Asthma GERD (gastroesophageal reflux disease) Menorrhagia Migraine Shoulder pain, left Surgical History Surgical History (Updated 04/17/23 @ 12:14 by Lisette Soto RN) H/O bilateral salpingectomy History of section S/P cholecystectomy S/P hysterectomy Tobacco Smoking/Tobacco Use Status: Never Alcohol Alcohol Intake: current Alcohol intake frequency: holidays/special occasions only Substance Use Substance use: Never Substance use type: does not use Vital Signs and Lab Results Vital Signs Most Recent Vital Signs in EMR: Temp Pulse Resp BP Pulse Ox 35.9 C L 86 18 135/83 94 04/17/23 12:06 04/17/23 12:06 04/17/23 12:06 04/17/23 12:06 04/17/23 12:06 Lab Results Blood Type / Crossmatch: No Data to Display Complete Blood Count: No Data to Display Complete Metabolic Panel: Sodium 141 mmol/L (136-145) 03/26/23 10:25 Potassium 4.4 mmol/L (3.5-5.1) 03/26/23 10:25 Chloride 104 mmol/L (98-107) 03/26/23 10:25 Carbon Dioxide 26.8 mmol/L (21.0-32.0) 03/26/23 10:25 BUN 12 mg/dL (7-18) 03/26/23 10:25 Creatinine 0.9 mg/dL (0.55-1.02) 03/26/23 10:25 Est GFR (CKD-EPI 2020) 78.86 (mL/min/1.73m2) 03/26/23 10:25 Calcium 9.3 mg/dL (8.5-10.1) 03/26/23 10:25 Albumin 3.7 g/dL (3.4-5.0) 03/26/23 10:25 Glucose 91 mg/dL (74-106) 03/26/23 10:25 C-Reactive Protein 1.40 mg/dL (0.0-0.3) H 03/26/23 10:25 Liver Function Panel: Alanine Aminotransferase (ALT/SGPT) 44 U/L (14-59) 03/26/23 10: 25 Aspartate Amino Transf (AST/SGOT) 21 U/L (15-37) 03/26/23 10:25 Coagulation Panel: No Data to Display Cardiac Panel: No Data to Display Arterial Blood Gas: No Data to Display Venous Blood Gas: No Data to Display Pancreas Panel: No Data to Display Thyroid Panel: Thyroid Stimulating Hormone (TSH) 1.59 uIU/mL (0.36-3.74) 03/26 10:25 Infectious Disease: No Data to Display Blood Cultures: No Data to Display Toxicology Panel: No Data to Display Panel: No Data to Display Imaging and Studies Imaging and Studies Study information below may be from another EMR and interpreted by another provider. Please see original notes in EMR for more complete details. Pulmonary Function Summary: 06/20: normal. Anesthesia Assessment and Plan Anesthesia History Personal History: No History of Anesthesia Complications Family History: No Family History of Anesthesia Complications Exercise Tolerance Exercise Tolerance: Metabolic Equivalents>4 Cardiac & Pulmonary Exam Cardiac Exam: Normal S1/S2 Heart Sounds Pulmonary Exam: Clear Bilateral Breath Sounds Implantable Cardiac Device Does patient have a Pacemaker or an ICD?: No Airway Exam Known Difficult Airway: No Mallampati Class: 3 Mouth Opening: Narrow (< 3cm) Thyromental Distance: Less than 3 cm Neck Range of Motion: Full ROM Neck Circumference: Thick Teeth Condition: Normal Dentition ASA Classification ASA Score: ASA 3 Emergency Case?: No NPO Status NPO Status: NPO Clears >2 hours, Solids >8 hours Status Status: History of Hysterectomy Anesthesia Plan Resuscitation Status: Full Code Anesthesia Technique: General Anesthesia Airway Planned: Natural Airway Monitors Used: Standard Monitors Preoperative Comments:: 47 yo female for colo. Sig PMHx: asthma, GERD (omeprazole), never smoker, occ EtOH, Previous Anes: - ex lap, glide grade 1.
[2023-04-17 12:12] VITALS: BMI 46.6
[2023-04-17] MEDS: Lactated Ringers 1,000 ML 80 ML IV (12:29)
[2023-04-17 13:08] VITALS: BP 129/79; PULSE 81; RESP 16; TEMP 36.1; O2SAT 95
--- NOTE | 2023-04-17 13:16 | W.ANESPOSTOP ---
Postoperative Evaluation Date, Time and Location Date Performed: 04/17/23 Time Performed: 13:22 Patient Location: Day Surgery Unit Vital Signs Most Recent Imported Vital Signs: Most Recent Vital Signs Temp Pulse Resp BP Pulse Ox 35.9 C L 86 18 135/83 94 04/17/23 12:06 04/17/23 12:06 04/17/23 12:06 04/17/23 12:06 04/17/23 12:06 Pain Score Most Recent Pain Score: Most Recent Pain Score Pain Level 0 04/17/23 12:06 Assessment Mental Status: Awake (Alert & Oriented to Patient Baseline) Airway and Respiratory Function: Patent airway with normal (patient baseline) respiratory exam Cardiovascular Function: Hemodynamically Stable Hydration Status: Adequately Hydrated Nausea & Vomiting: No Nausea or Vomiting Pain: Pt. Denies Any Pain Peripheral Nerve Block: Patient did not receive a nerve block
[2023-04-17 13:32] VITALS: BP 125/72; PULSE 70; RESP 16; TEMP 36.6; O2SAT 97
== END 2023-04-17 13:45 | disposition home or self-care (01) ==
PROVIDERS: PCP Nurse Practitioner Family; Visit Provider Surgery
PROC: 0DJD8ZZ Inspection of Lower Intestinal Tract, Via Natural or Artificial Opening Endoscopic (ICD-10-PCS; CPT 45378; principal; 2023-04-17 12:15)
DX: Z12.11 Encounter for screening for malignant neoplasm of colon; J45.909 Unspecified asthma, uncomplicated; K57.30 Diverticulosis of large intestine without perforation or abscess without bleeding; K21.9 Gastro-esophageal reflux disease without esophagitis
CPT/HCPCS: 45378

== ENCOUNTER 2023-06-08 10:52 | Emergency (ER) | payer BC, SELFPAY ==
[2023-06-08 10:55] VITALS: BP 139/79; PULSE 78; TEMP 36.7; O2SAT 96
--- NOTE | 2023-06-08 11:00 | DI.RAD_ITS ---
Exam(s) XR KNEE LT 3V AP,LAT,AYESHA EXAM: XR KNEE LT 3V AP,LAT,AYESHA CLINICAL HISTORY: Left knee pain, swelling. TECHNIQUE: 2D digital imaging was performed of the left knee. Four images were obtained. AP, later al and PA tunnel views were obtained. COMPARISON: There are no priors for comparison. FINDINGS: BONES: No acute fracture is present. No bony destructive lesion is seen. There are enthesophytes at the anterior patella. JOINTS: There are mild degenerative changes in the knee. No joint effusion is seen. No loose body. SOFT TISSUE: Normal. IMPRESSION: Mild osteoarthritis. DATA REPOSITORY: RADIATION DOSE DELIVERED:
--- NOTE | 2023-06-08 11:07 | W.ED.GENAD ---
Discharge Plan Disposition Patient Disposition: Home Condition: Stable Discharge Details Clinical Impression: Synovial cyst of popliteal space [Thomson], left knee, Osteoarthritis of left knee Primary Care Provider: FALGUNI QUINTERO ED Provider: Carlotta Salcedo Home Meds and New Rx's Prescriptions: Continued omeprazole 40 mg capsule,delayed release(DR/EC) 40 mg PO DAILY fluticasone propion-salmeterol [Advair Diskus] 500-50 mcg/dose blister with device 1 inh inhalation BID cholecalciferol (vitamin D3) 25 mcg (1,000 unit) capsule 25 mcg PO DAILY montelukast [Singulair] 10 MG tablet 10 mg PO DAILY albuterol sulfate [ProAir HFA] 8.5 GM HFA aerosol inhaler 8.5 gm Inhalation DIRECTED PRN ibuprofen 600 mg tablet 600 mg PO TID-QID PRN (Reason: pain) Qty: 20 0RF duloxetine 60 mg capsule,delayed release(DR/EC) 60 mg PO DAILY Patient Comments: TAKE 1 CAPSULE BY MOUTH DAILY Discharge Instructions Instructions: Thomson Cyst (ED) Additional Instructions: X-ray shows some osteoarthritis of your left knee joint. Bedside ultra sound exam shows a possible ruptured Thomson's cyst. Please continue with RICE procedures rest, ice, compression elevation. Wear the Don wrap as needed for comfort. This should not improve your pain within the next couple weeks. If continued pain or any concerns you may follow-up with orthopedics if needed. Please take Tylenol or Ibuprofen with food every 4-6 hours as needed for pain and swelling. Follow up with primary care provider in 3-5 days. Return to ED sooner if any worsening or concerns. Increase oral fluids. Referrals: FALGUNI QUINTERO CATEGORY DIRECTOR [Primary Care Provider] - 1 week Oniel Crowley PA [[facility] [employer] [facility]] - 2 weeks (Left bakers cyst) Discharge Data Discharge Date/Time-TO BE ENTERED AT DEPARTURE: 06/08/23 12:50 Medical Decision Making 48-year-old female with a past medical history of hyperlipidemia, asthma GERD, migraine presents to the ER with chief complaint of left knee pain which began on and left lower extremity swelling which began on Thursday. She denies any known injury. She does have some medial joint tenderness with palpation. Small amount of warmth palpated. Distal CMS is intact. She does have 1+ nonpitting edema noted to her left ankle, positive Homans' sign. No erythema noted to her calf. She does have a history of hysterectomy, she is not on any hormone replacement she denies any recent long trips in a car plane. She denies smoking. No other associated symptoms. Dr. Nash at bedside to assist with POCUS exam to rule out DVT versus Thomson's cyst. There was a ruptured Thomson's cyst noted on images please see his official documentation. X-ray shows mild osteoarthritis and degenerative changes of the knee joint. No acute fracture or malalignment. Don wrap ordered and will have patient follow-up with orthopedics if needed if no better in 2 to 3 weeks of RICE procedures. Discussed home care with patient who verbalizes understanding. This text was generated using GPX Softwareation system, please disregard any oddities of phrase or misspellings. HPI General Mode of arrival: ambulatory. Date/Time Provider Initiated Documentation: 06/08/23 11:00. Limitations to Documentation: no limitations. Information obtained by: patient, RN notes reviewed and old records reviewed. HPI Narrative: 48-year-old female with a past medical history of hyperlipidemia, asthma GERD, migraine presents to the ER with chief complaint of left knee pain which began on and left lower extremity swelling which began on Thursday. She denies any known injury. She does have some medial joint tenderness with palpation. Small amount of warmth palpated. Distal CMS is intact. She does have 1+ nonpitting edema noted to her left ankle, positive Homans' sign. No erythema noted to her calf. She does have a history of hysterectomy, she is not on any hormone replacement she denies any recent long trips in a car plane. She denies smoking. No other associated symptoms. Related Data Home Medications Medication Instructions Recorded Confirmed albuterol sulfate 90 mcg/actuation 8.5 gm inhalation DIRECTED PRN 05/18/17 04/17/23 aerosol inhaler (ProAir HFA) montelukast 10 mg tablet 10 mg PO DAILY 05/18/17 04/17/23 (Singulair) ibuprofen 600 mg tablet 600 mg PO TID-QID PRN pain #20 tabs 02/23/19 04/15/23 duloxetine 60 mg capsule,delayed 60 mg PO DAILY 11/22/21 04/17/23 release cholecalciferol (vitamin D3) 25 25 mcg PO DAILY 09/01/22 04/17/23 mcg (1,000 unit) capsule fluticasone 500 mcg-salmeterol 50 1 inh inhalation BID 09/01/22 04/17/23 mcg/dose blistr powdr for inhalation (Advair Diskus) omeprazole 40 mg capsule,delayed 40 mg PO DAILY 09/01/22 04/17/23 release Previous Rx's Medication Instructions Recorded ibuprofen 600 mg tablet 600 mg PO TID-QID PRN pain #20 tabs 02/23/19 Allergies Allergy/AdvReac Type Severity Reaction Status Date / Time No Known Drug Allergies Allergy Verified 04/15/23 13:48 General Stated Complaint: Orthopedic DESMOND: 4 Review of Systems All systems reviewed & are unremarkable except as noted in HPI and below Musculoskeletal Musculoskeletal: Reports as per HPI, Reports arthralgias and Reports joint swelling PFSH All Active Problems (Updated 06/08/23 @ 12:11 by Carlotta Salcedo NP) Synovial cyst of popliteal space [Thomson], left knee (Acute) Osteoarthritis of left knee (Acute) Diverticula of colon (Acute) Polyarthralgia (Chronic) 10/2019. Consult at [facility]. No evidence of autoimmune disease-labs pending Screening for colon cancer (Acute) Grief (Chronic) Hyperlipidemia (Acute) Screening for malignant neoplasm of colon performed (Acute) Medical History Abnormal uterine bleeding Asthma GERD (gastroesophageal reflux disease) Menorrhagia Migraine Shoulder pain, left Surgical History H/O bilateral salpingectomy History of section History of colonoscopy (~04/2023) S/P cholecystectomy S/P hysterectomy Social History Smoking/Tobacco Use Status: Never Smoking risk assessment performed?: Yes Alcohol Intake: current Alcohol Intake frequency: holidays/special occasions only Drug use: Never Substance use type: does not use Housing: house Do you feel safe at home: Yes Do you feel safe in your relationship?: Yes Exam Extrem Left lower extremity: knee Details: tenderness Location: of the popliteal fossa and of the medial joint line, swelling ( ) and warmth Location: of the entire knee joint; no abrasions, no ecchymosis and no deformity and lower leg Course Vital Signs Vital signs: Vital Signs Temperature 36.7 C 06/08/23 10:55 Pulse 78 06/08/23 10:55 Blood Pressure 139/79 06/08/23 10:55 Pulse Oximetry 96 06/08/23 10:55 Temperature 36.7 C 06/08/23 10:55 Temperature Source Oral 06/08/23 10:55 Pulse 78 06/08/23 10:55 Respiratory Effort Normal, Non-Labored 06/08/23 11:01 Blood Pressure 139/79 06/08/23 10:55 Blood Pressure Position Sitting 06/08/23 10:55 Pulse Oximetry 96 06/08/23 10:55 Oxygen Delivery Method Room Air 06/08/23 10:55 Oxygen Flow Rate 0 06/08/23 10:55 Pain Level 6 06/08/23 11:01 POCUS Exam (ED) Limited Vascular Exam DATE OF EXAM: 06/08/23 TIME OF EXAM: 11:35 PROVIDER THAT PERFORMED THE STUDY: Carlotta Salcedo IS THIS A REPEAT EXAM DURING THIS ENCOUNTER: No Vascular Exam: Left lower extremity REASON FOR EXAM: Concern for DVT left lower extremity, Left calf pain, Left lower extremity pain and Left lower extremity swelling/edema VISUALIZED STRUCTURES: Left common femoral vein, Left popliteal vein, Left superficial femoral vein and Left greater saphenous vein PERTINENT FINDINGS/IMPRESSION: Compressible veins left leg, No apparent abnormalities and Other impression: Ruptured Bakers cyst Exam Complete (Assisted by Dr. Leroy Nash) DIFFERENTIAL DIAGNOSES: DVT, Bakers Cyst, Knee Sprain
--- NOTE | 2023-06-08 11:45 | DI.VRAD_ITS ---
PROCEDURE INFORMATION: Exam: XR Left Knee Exam date and time: 06/08/2023 11:37 AM Age: 48 years old Clinical indication: Pain; Knee; Left TECHNIQUE: Imaging protocol: Radiologic exam of the left knee. Views: 3 views. COMPARISON: No relevant prior studies available. FINDINGS: Bones/joints: There are mild degenerative changes of the knee joint, predominantly involving the medial joint compartment. The joint spaces are preserved. No acute fracture or malalignment. Soft tissues: Unremarkable. IMPRESSION: Mild osteoarthrosis. Dictated and Authenticated by: Hollis Botello MD. Ordering:NAHUN Laguerre MD
[2023-06-08 12:50] VITALS: BP 133/84; PULSE 84; RESP 18; O2SAT 94
--- NOTE | 2023-06-11 21:26 | ED.PROG_ITS ---
Date of service: 06/08/23 Time of Service: 11:55 Medical Decision Making Patient presents to the emergency department with swelling of the left lower extremity from the knee down and was seen by nurse practitioner Zita Mcintosh who asked me to perform a DVT duplex Doppler study of the left lower extremity to rule out a DVT. Discharge Plan Disposition Patient Disposition: Home Condition: Stable Discharge Details Clinical Impression: Synovial cyst of popliteal space [Thomson], left knee, Osteoarthritis of left knee Primary Care Provider: FALGUNI QUINTERO ED Provider: Carlotta Salcedo Home Meds and New Rx's Prescriptions: Continued omeprazole 40 mg capsule,delayed release(DR/EC) 40 mg PO DAILY fluticasone propion-salmeterol [Advair Diskus] 500-50 mcg/dose blister with device 1 inh inhalation BID cholecalciferol (vitamin D3) 25 mcg (1,000 unit) capsule 25 mcg PO DAILY montelukast [Singulair] 10 MG tablet 10 mg PO DAILY albuterol sulfate [ProAir HFA] 8.5 GM HFA aerosol inhaler 8.5 gm Inhalation DIRECTED PRN ibuprofen 600 mg tablet 600 mg PO TID-QID PRN (Reason: pain) Qty: 20 0RF duloxetine 60 mg capsule,delayed release(DR/EC) 60 mg PO DAILY Patient Comments: TAKE 1 CAPSULE BY MOUTH DAILY Discharge Instructions Instructions: Thomson Cyst (ED) Additional Instructions: X-ray shows some osteoarthritis of your left knee joint. Bedside ultra sound exam shows a possible ruptured Thomson's cyst. Please continue with RICE procedures rest, ice, compression elevation. Wear the Don wrap as needed for comfort. This should not improve your pain within the next couple weeks. If continued pain or any concerns you may follow-up with orthopedics if needed. Please take Tylenol or Ibuprofen with food every 4-6 hours as needed for pain and swelling. Follow up with primary care provider in 3-5 days. Return to ED sooner if any worsening or concerns. Increase oral fluids. Referrals: FALGUNI QUINTERO, HYPERION ADMINISTRATOR [Primary Care Provider] - 1 week Oniel Crowley PA [PHYSICIANS HANDICRAFTS TEACHER] - 2 weeks (Left bakers cyst) Discharge Data Discharge Date/Time-TO BE ENTERED AT DEPARTURE: 06/08/23 12:50 POCUS Exam (ED) Limited Vascular Exam DATE OF EXAM: 06/08/23 TIME OF EXAM: 11:55 PROVIDER THAT PERFORMED THE STUDY: Leroy Nash Vascular Exam: Left lower extremity REASON FOR EXAM: Left calf pain, Left lower extremity pain and Left lower extremity swelling/edema VISUALIZED STRUCTURES: Left common femoral vein, Left popliteal vein, Left superficial femoral vein and Left greater saphenous vein PERTINENT FINDINGS/IMPRESSION: Compressible veins left leg and Other (Ruptured Thomson's cyst) impression: Ruptured Thomson's cyst Exam Complete DIFFERENTIAL DIAGNOSES: No DVT INCIDENTAL FINDINGS: Ruptured Thomson's cyst
== END 2023-06-08 12:50 | disposition home or self-care (01) ==
PROVIDERS: Emergency Provider Registered Nurse Emergency; PCP Nurse Practitioner Family
DX: M25.562 Pain in left knee (principal); M66.0 Rupture of popliteal cyst; E78.5 Hyperlipidemia, unspecified
CPT/HCPCS: 73562; 93971; 99284; 99283

== ENCOUNTER → 2023-08-04 02:14 | Outpatient (CLI) | payer BC, SELFPAY ==
--- NOTE | 2023-08-04 07:45 | DI.MRI_ITS ---
Exam(s) MR LOWER JOINT LT WO EXAM: MR LOWER JOINT LT WO CLINICAL HISTORY: ? meniscus tear, LT KNEE PAIN, M25.562. TECHNIQUE: Multiplanar multisequence MRI was performed. COMPARISON: CR,XR XR KNEE LT 3V AP,LAT,AYESHA from 06/08/2023 FINDINGS: BONES: There is no fracture or contusion pattern. JOINTS: Degenerative changes are seen in all 3 joint compartments with varying degrees of cartilage t hinning, subchondral edema and osteophytes. There is a moderate joint effusion present. TENDONS: Extensor mechanism: Unremarkable. Medial retinaculum: Unremarkable. Lateral retinaculum: Unremarkable. Popliteus: Unremarkable. MUSCLES: Unremarkable. MENISCI: There is mild increased signal seen in the root of the medial meniscus suspicious for tear. The lateral meniscus is unremarkable. SOFT TISSUES: There is mild edema seen in the soft tissues. There is a 3.5 x 1.8 x 6.0 cm popliteal cyst. LIGAMENTS: Anterior Cruciate: Unremarkable. Posterior Cruciate: Unremarkable. Medial Collateral:There is fluid signal around the MCL suggesting a sprain. There is no evidence of a tear. Lateral Collateral: Unremarkable. OTHER: IMPRESSION: 1. Tricompartment degenerative changes in the knee. 2. Question of a tear of the root of the medial meniscus. 3. MCL sprain. 4. Moderate joint effusion and popliteal cyst. DATA REPOSITORY:
== END ==
PROVIDERS: PCP Nurse Practitioner Family; Visit Provider Student in an Organized Health Care Education/Training Program
DX: M25.562 Pain in left knee (principal); S83.411A Sprain of medial collateral ligament of right knee, initial encounter; X58.XXXA Exposure to other specified factors, initial encounter
CPT/HCPCS: 73721

== ENCOUNTER → 2023-08-10 16:25 | Outpatient (CLI) | payer BC, SELFPAY ==
--- NOTE | 2023-08-10 | DI.RAD_ITS ---
Exam(s) XR CHEST 2V PA LATERAL EXAM: XR CHEST 2V PA LATERAL CLINICAL HISTORY: ASTHMA MODERATE PERSISTENT WITH ACUTE EXACERBATION, J45.41 TECHNIQUE: 2D digital imaging was performed of the chest. Two images were obtained. PA and lateral views were obtained. COMPARISON: CR CHEST 2 VIEWS PA,LAT from 05/18/2017 FINDINGS: MEDIASTINUM: Normal. HEART: Normal. PULMONARY VASCULATURE: Normal. LUNGS: Clear. PLEURAL SPACE: No pleural effusion or pneumothorax. BONE:Within normal limits for the patient's age. OTHER FINDINGS:Normal. IMPRESSION: No acute pulmonary findings. DATA REPOSITORY: RADIATION DOSE DELIVERED:
== END ==
PROVIDERS: PCP Nurse Practitioner Family; Visit Provider Nurse Practitioner Family
DX: J45.41 Moderate persistent asthma with (acute) exacerbation (principal)
CPT/HCPCS: 71046

== ENCOUNTER 2023-08-11 19:43 | Emergency (ER) | payer BC, SELFPAY ==
[2023-08-11 19:47] VITALS: BP 168/88; PULSE 86; RESP 17; TEMP 36.9; O2SAT 94
--- NOTE | 2023-08-11 20:02 | ED.GENADUL_ITS ---
Discharge Plan Disposition Patient Disposition: Home Condition: Stable Discharge Details Clinical Impression: Asthma exacerbation, URI (upper respiratory infection) Primary Care Provider: FALGUNI QUINTERO ED Provider: Carlotta Salcedo Home Meds and New Rx's Prescriptions: New benzonatate 100 mg capsule 100 mg PO TID PRN (Reason: cough) Qty: 14 0RF Rx Instructions: Take 1 capsule up to 3 times daily as needed for cough Continued omeprazole 40 mg capsule,delayed release(DR/EC) 40 mg PO DAILY fluticasone propion-salmeterol [Advair Diskus] 500-50 mcg/dose blister with device 1 inh inhalation BID cholecalciferol (vitamin D3) 25 mcg (1,000 unit) capsule 25 mcg PO DAILY cyclobenzaprine 10 mg tablet 10 mg PO HS PRN meloxicam 15 mg tablet 15 mg PO DAILY PRN montelukast [Singulair] 10 MG tablet 10 mg PO DAILY albuterol sulfate [ProAir HFA] 8.5 GM HFA aerosol inhaler 8.5 g Inhalation DIRECTED PRN ibuprofen 600 mg tablet 600 mg PO TID-QID PRN (Reason: pain) Qty: 20 0RF duloxetine 60 mg capsule,delayed release(DR/EC) 60 mg PO DAILY Patient Comments: TAKE 1 CAPSULE BY MOUTH DAILY prednisone 20 mg tablet Patient Comments: TAKE 2 TABLETS BY MOUTH DAILY FOR 5 DAYS Discharge Instructions Instructions: Asthma (ED), Upper Respiratory Infection (ED) Additional Instructions: Due to the upper respiratory infection you will feel short of breath due to your history of asthma. Please continue to use your albuterol inhaler 1 or 2 puffs every 4-6 hours as needed. Continue taking the prednisone as previously prescribed. You may use the Tessalon Perles as needed for cough or [id number] cough suppressant. Follow up with primary care provider in 3-5 days. Return to ED sooner if any worsening or concerns. Increase oral fluids. Please take Tylenol or Ibuprofen with food every 4-6 hours as needed for pain and swelling. Stand Alone Forms: Work Release Referrals: FALGUNI QUINTERO, SHAREPOINT ENGINEER [Primary Care Provider] - 3 days Medical Decision Making 48-year-old female presents to the ER with a chief complaint of shortness of breath and cough which has been ongoing for approximately a week. Patient was seen in urgent care yesterday had a negative COVID swab normal chest x-ray and was prescribed 10 more days of prednisone taper. She does have a history of asthma and has a handheld albuterol inhaler at home. She does not have a nebulizer machine yet. She reports that she is tired and continues to cough. No significant wheezing noted on auscultation no increased work of breathing O2 sat is 94% on room air. DuoNeb ordered and Ciara Guzman. Patient discharged with Ciara Guzman to go and prescription for this. Additional imaging not necessary at this time due to patient is having a chest x-ray yesterday and O2 sat is 94%. Patient remained hemodynamically stable throughout the remainder of her stay. Instructed to follow-up with her PCP. Given strict return instructions. This text was generated using [employer] dictation system, please disregard any oddities of phrase or misspellings. HPI General Mode of arrival: ambulatory . Date/Time Provider Initiated Documentation: 08/11/23 19:49 . Limitations to Documentation: no limitations . Information obtained by: patient, RN notes reviewed and old records reviewed . HPI Narrative: 48-year-old female presents to the ER with a chief complaint of shortness of breath and cough which has been ongoing for approximately a week. Patient was seen in urgent care yesterday had a negative COVID swab normal chest x-ray and was prescribed 10 more days of prednisone taper. She does have a history of asthma and has a handheld albuterol inhaler at home. She does not have a nebulizer machine yet. She reports that she is tired and continues to cough. No significant wheezing noted on auscultation no increased work of breathing O2 sat is 94% on room air. Related Data Home Medications Medication Instructions Recorded Confirmed albuterol sulfate 90 mcg/actuation 8.5 g inhalation DIRECTED PRN 05/18/17 08/11/23 aerosol inhaler (ProAir HFA) montelukast 10 mg tablet 10 mg PO DAILY 05/18/17 08/11/23 (Singulair) ibuprofen 600 mg tablet 600 mg PO TID-QID PRN pain #20 tabs 02/23/19 08/11/23 duloxetine 60 mg capsule,delayed 60 mg PO DAILY 11/22/21 08/11/23 release cholecalciferol (vitamin D3) 25 25 mcg PO DAILY 09/01/22 08/11/23 mcg (1,000 unit) capsule fluticasone 500 mcg-salmeterol 50 1 inh inhalation BID 09/01/22 08/11/23 mcg/dose blistr powdr for inhalation (Advair Diskus) omeprazole 40 mg capsule,delayed 40 mg PO DAILY 09/01/22 08/11/23 release cyclobenzaprine 10 mg tablet 10 mg PO HS PRN 06/29/23 08/11/23 meloxicam 15 mg tablet 15 mg PO DAILY PRN 06/29/23 08/11/23 benzonatate 100 mg capsule 100 mg PO TID PRN cough #14 caps 08/11/23 prednisone 20 mg tablet mg 08/11/23 Previous Rx's Medication Instructions Recorded ibuprofen 600 mg tablet 600 mg PO TID-QID PRN pain #20 tabs 02/23/19 benzonatate 100 mg capsule 100 mg PO TID PRN cough #14 caps 08/11/23 Allergies Allergy/AdvReac Type Severity Reaction Status Date / Time No Known Drug Allergies Allergy Verified 08/11/23 19:51 General Stated Complaint: RespSymp DESMOND: 4 Review of Systems All systems reviewed & are unremarkable except as noted in HPI and below Cardiovascular Cardiovascular: Reports dyspnea Respiratory Respiratory: Reports cough and Reports dyspnea PFSH All Active Problems (Updated 08/11/23 @ 20:31 by Carlotta Salcedo NP) URI (upper respiratory infection) (Acute) Asthma exacerbation (Acute) Arthritis of left knee (Acute) Obesity (Chronic 01/31/14) Diverticula of colon (Acute) Polyarthralgia (Chronic) 10/2019. Consult at [facility]. No evidence of autoimmune disease-labs pending Screening for colon cancer (Acute) Grief (Chronic) Hyperlipidemia (Acute) Screening for malignant neoplasm of colon performed (Acute) Medical History Endometrioma of ovary (01/07/16) complex mass on CT and US 01/03/16 in ER; s/p bilat oopherectomy, L salpingectomy via laparotomy on E/P HRT Asthma GERD (gastroesophageal reflux disease) Migraine Shoulder pain, left Menorrhagia Abnormal uterine bleeding Surgical History History of colonoscopy (~04/2023) H/O bilateral salpingectomy History of section S/P hysterectomy S/P cholecystectomy Social History Smoking/Tobacco Use Status: Never Smoking risk assessment performed?: Yes Alcohol Intake: current Alcohol Intake frequency: holidays/special occasions only Drug use: Never Substance use type: does not use Housing: house Do you feel safe at home: Yes Do you feel safe in your relationship?: Yes Course Vital Signs Vital signs: Vital Signs Temperature 36.9 C 08/11/23 19:47 Pulse 86 08/11/23 19:47 Respiratory Rate 17 08/11/23 19:47 Blood Pressure 168/88 H 08/11/23 19:47 Pulse Oximetry 94 08/11/23 19:47 Temperature 36.9 C 08/11/23 19:47 Temperature Source Tympanic 08/11/23 19:47 Pulse 86 08/11/23 19:47 Respiratory Rate 17 08/11/23 19:47 Respiratory Effort Normal 08/11/23 19:50 Blood Pressure 168/88 H 08/11/23 19:47 Blood Pressure Position Sitting 08/11/23 19:47 Pulse Oximetry 94 08/11/23 19:47 Pain Level 5 08/11/23 19:47
[2023-08-11 20:15] VITALS: RESP 6
[2023-08-11] MEDS: Benzonatate 100 MG CAP PO ×2 (20:15)
[2023-08-11] MEDS: Albuterol/Ipratropium 3 ML UPD VIAL UPD (20:15)
[2023-08-11 20:35] VITALS: BP 136/68; PULSE 91; RESP 22; O2SAT 92
== END 2023-08-11 20:37 | disposition home or self-care (01) ==
PROVIDERS: Emergency Provider Registered Nurse Emergency; PCP Nurse Practitioner Family
DX: J45.901 Unspecified asthma with (acute) exacerbation (principal); J06.9 Acute upper respiratory infection, unspecified
CPT/HCPCS: 99283; J7620

== ENCOUNTER 2023-08-26 14:57 | Emergency (ER) | payer BC, SELFPAY ==
[2023-08-26] VITALS (19 sets, daily range): BP systolic 121–183; BP diastolic 53–82; PULSE 67–101; RESP 5–23; TEMP 36.3; O2SAT 90–100
--- NOTE | 2023-08-26 14:45 | RT.EKG_ITS ---
APPROVED REPORT Exam: Resting ECG Reason for Exam: sob Patient Location: E HR:64 bpm ECG Measurements Heart Rate 64 AXIS IN 164 P 59 QRSd 108 QRS 71 QT 411 T 29 QTc 424 Conclusion Sinus rhythm 64 normal axis no acute ischemic change
--- NOTE | 2023-08-26 15:00 | DI.RAD_ITS ---
Exam(s) XR CHEST 2V PA LATERAL EXAM: XR CHEST 2V PA LATERAL CLINICAL HISTORY: shortness of breath TECHNIQUE: 2D digital imaging was performed. COMPARISON: CR XR CHEST 2V PA LATERAL from 08/10/2023 FINDINGS: HEART: Normal size. Aorta: Not dilated. PULMONARY VASCULATURE: Normal. LUNGS: Clear. PLEURAL SPACE: No pleural effusion or pneumothorax. BONE:Unremarkable for age. Soft tissues: Unremarkable. IMPRESSION: No acute abnormality. DATA REPOSITORY: RADIATION DOSE DELIVERED:
--- NOTE | 2023-08-26 15:07 | ED.GENADUL_ITS ---
Discharge Plan Disposition Patient Disposition: Home Discharge Details Clinical Impression: Atypical pneumonia, URI (upper respiratory infection), Shortness of breath Primary Care Provider: FALGUNI QUINTERO ED Provider: Aniceto aZvala Home Meds and New Rx's Prescriptions: New doxycycline hyclate 100 mg capsule 100 mg PO BID 7 Days Qty: 14 0RF albuterol sulfate [ProAir HFA] 90 mcg/actuation HFA aerosol inhaler 2 puff inhalation Q4H PRNQty: 8.5 0RF No Action omeprazole 40 mg capsule,delayed release(DR/EC) 40 mg PO DAILY fluticasone propion-salmeterol [Advair Diskus] 500-50 mcg/dose blister with device 1 inh inhalation BID cholecalciferol (vitamin D3) 25 mcg (1,000 unit) capsule 25 mcg PO DAILY meloxicam 15 mg tablet 15 mg PO DAILY PRN montelukast [Singulair] 10 MG tablet 10 mg PO DAILY albuterol sulfate [ProAir HFA] 8.5 GM HFA aerosol inhaler 8.5 g Inhalation DIRECTED PRN ibuprofen 600 mg tablet 600 mg PO TID-QID PRN (Reason: pain) Qty: 20 0RF duloxetine 60 mg capsule,delayed release(DR/EC) 60 mg PO DAILY Patient Comments: TAKE 1 CAPSULE BY MOUTH DAILY Discharge Instructions Instructions: Upper Respiratory Infection (ED) Additional Instructions: START THE ANTIBIOTICS PRESCRIBED FOLLOW UP WITH YOUR PCP AFTER THE HOLIDAYS CONTINUE BREATHING TREATMENT OR MDI EVERY 4 HOURS FOR THE NEXT 24 HOURS AND THEN SPACE TO NEEDED RETURN WITH WORSENING SYMPTOMS Discharge Data Discharge Date/Time-TO BE ENTERED AT DEPARTURE: 08/26/23 17:32 Medical Decision Making Emergent evaluation of shortness of breath. Patient has been having ongoing URI symptoms for the last several weeks. Initial differential includes pneumonia, reactive airway disease, cardiomyopathy. Patient is not hypoxic or having any significant respiratory distress at this time. Patient's symptoms are not improving despite steroids and bronchodilators. Initial plan for lab work and x-ray imaging. Will give a dose of Solu-Medrol and an albuterol treatment and reassess. 1710 labwork reviewed. CBC without leukocytosis, anemia or thrombocytopenia. There is no significant electrolyte derangement. Her cardiac biomarkers are unremarkable. Her chest x-ray without is without signs of consolidation or pulmonary edema. After her breathing treatment she is feeling much better. Given the history of asthma and the persistence and ongoing symptoms for so long, at this time I will treat with antibiotics for an atypical pneumonia. She has already had 2 courses of steroids during this illness, I will not give an additional course of steroids. I have refilled her albuterol inhaler and provided her with doxycycline to take until the pharmacy reopens Thursday. She was discharged in good condition. Return precautions advised. Medical Records Medical records reviewed: Yes I reviewed the patient's medical records. Lab Data Lab results reviewed: Yes I reviewed the patient's lab results. ECG Data Attestation: I personally reviewed and interpreted this ECG (s) as follows: Prior ECG tracings: not available for review Interpretation: Sinus 64, normal axis, no acute ischemic changes HPI General Date/Time Provider Initiated Documentation: 08/26/23 15:03 . Limitations to Documentation: no limitations . Information obtained by: patient . HPI Narrative: 48y F with reported past medical history of asthma presents for evaluation of shortness of breath. She reports that for the last 6 weeks she has been having URI symptoms. Initially cough was productive. She uses nebulizer and daily Advair inhaler. She did a 5-day course of prednisone and recently completed a 10-day taper prednisone. She reports that her last steroid was 4 days ago. She states that the cough is significantly worsened since yesterday. She feels short of breath all the time. She has not had any fever. She reports that she feels tightness in her chest. Her last dose of albuterol was at 1030 this morning. She reports that the cough is tight and not productive. Related Data Home Medications Medication Instructions Recorded Confirmed albuterol sulfate 90 mcg/actuation 8.5 g inhalation DIRECTED PRN 05/18/17 08/26/23 aerosol inhaler (ProAir HFA) montelukast 10 mg tablet 10 mg PO DAILY 05/18/17 08/26/23 (Singulair) ibuprofen 600 mg tablet 600 mg PO TID-QID PRN pain #20 tabs 02/23/19 08/26/23 duloxetine 60 mg capsule,delayed 60 mg PO DAILY 11/22/21 08/26/23 release cholecalciferol (vitamin D3) 25 25 mcg PO DAILY 09/01/22 08/26/23 mcg (1,000 unit) capsule fluticasone 500 mcg-salmeterol 50 1 inh inhalation BID 09/01/22 08/26/23 mcg/dose blistr powdr for inhalation (Advair Diskus) omeprazole 40 mg capsule,delayed 40 mg PO DAILY 09/01/22 08/26/23 release meloxicam 15 mg tablet 15 mg PO DAILY PRN 06/29/23 08/26/23 albuterol sulfate 90 mcg/actuation 2 puff inhalation Q4H PRN #8.5 08/26/23 aerosol inhaler (ProAir HFA) grams doxycycline hyclate 100 mg capsule 100 mg PO BID 7 days #14 caps 08/26/23 Previous Rx's Medication Instructions Recorded ibuprofen 600 mg tablet 600 mg PO TID-QID PRN pain #20 tabs 02/23/19 albuterol sulfate 90 mcg/actuation 2 puff inhalation Q4H PRN #8.5 08/26/23 aerosol inhaler (ProAir HFA) grams doxycycline hyclate 100 mg capsule 100 mg PO BID 7 days #14 caps 08/26/23 Allergies Allergy/AdvReac Type Severity Reaction Status Date / Time No Known Drug Allergies Allergy Verified 08/26/23 15:03 General DESMOND: 4 PFSH All Active Problems (Updated 08/26/23 @ 17:14 by Aniceto Zavala MD) Shortness of breath (Acute) Atypical pneumonia (Acute) URI (upper respiratory infection) (Acute) Asthma exacerbation (Acute) Arthritis of left knee (Acute) Obesity (Chronic 01/31/14) Diverticula of colon (Acute) Polyarthralgia (Chronic) 10/2019. Consult at [facility]. No evidence of autoimmune disease-labs pending Screening for colon cancer (Acute) Grief (Chronic) Hyperlipidemia (Acute) Screening for malignant neoplasm of colon performed (Acute) Medical History Endometrioma of ovary (01/07/16) complex mass on CT and US 01/03/16 in ER; s/p bilat oopherectomy, L salpingectomy via laparotomy on E/P HRT Asthma GERD (gastroesophageal reflux disease) Migraine Shoulder pain, left Menorrhagia Abnormal uterine bleeding Surgical History History of colonoscopy (~04/2023) H/O bilateral salpingectomy History of section S/P hysterectomy S/P cholecystectomy Social History Smoking/Tobacco Use Status: Never Smoking risk assessment performed?: Yes Alcohol Intake: current Alcohol Intake frequency: holidays/special occasions only Drug use: Never Substance use type: does not use Housing: house Do you feel safe at home: Yes Do you feel safe in your relationship?: Yes Exam Narrative Exam Narrative: Review of Systems: All systems reviewed & are unremarkable except as noted in HPI and below: CONSTITUTIONAL: Alert and oriented Well-developed, no acute distress + Hypertensive HEENT: NACT EYES: PERRL, no conjunctival injection EARS: no external abnormality NOSE nares patent MOUTH Moist MM NECK: Symmetric, trachea midline, No thyromegaly THROAT oropharynx clear CVS: RRR, No murmurs or gallops. Peripheral pulses 2+ and equal in all extremities Brisk capillary refill in all extremities. No peripheral edema RESP: Mild tachypnea with diminished breath movement bilaterally, inspiratory and expiratory wheezing bilaterally No significant respiratory distress GI: Soft, Nontender, Nondistended, No organomegaly MSK: Extremities with full range of motion, no deformity or TTP SKIN: Warm, Dry. No rashes or lesions. NEURO: No focal neurologic deficits.
[2023-08-26 15:39] LABS: Abs Immature Grans 0.02 10^3/uL (0.0-0.06); Absolute Basophil Count 0.05 10^3/uL (0.0-0.2); Absolute Eosinophil Count 0.39 10^3/uL (0.0-0.7); Absolute Lymphocyte Count 1.92 10^3/uL (1.2-3.4); Absolute Monocyte Count 0.53 10^3/uL (0.1-0.8); Absolute Neutrophil Count 3.87 10^3/uL (1.2-6.7); Basophils % 0.7; Eosinophils % 5.8; HCT 44.3 % (36.0-46.0); HGB 14.3 g/dL (11.2-15.7); Immature Grans % 0.3; Lymphocytes % 28.3; MCHC 32.3 % (32.0-36.0); MCV 90 fL (80-95); Monocytes % 7.8; Neutrophils % 57.1; RBC 4.93 10^6/uL (3.93-5.22); RDW 13.2 % (11.7-14.6); RDW-SD 43.1 fL; WBC 6.78 10^3/uL (4.4-10.8)
[2023-08-26 16:00] LABS: ALT 73 U/L (14-59); AST 37 U/L (15-37); Albumin 3.4 g/dL (3.4-5.0); Alkaline Phosphatase 118 U/L (46-116); Anion Gap 7.8 mmol/L (3-11); BUN 7 mg/dL (7-18); Bilirubin, Total 0.7 mg/dL (0.2-1.0); CO2 25.2 mmol/L (21.0-32.0); CREATININE 0.8 mg/dL (0.55-1.02); Calcium 9.5 mg/dL (8.5-10.1); Chloride 102 mmol/L (98-107); Estimated GFR 90.27 (mL/min/1.73m2); Glucose 98 mg/dL (74-106); Magnesium 2.3 mg/dL (1.8-2.4); NT-proBNP 92 pg/mL (<300); Potassium 4.1 mmol/L (3.5-5.1); Sodium 135 mmol/L (136-145); Total Protein 7.8 g/dL (6.4-8.2); Troponin I < 50 ng/L (<or=60)
[2023-08-26] MEDS: Albuterol 2.5 MG/3 ML INH SOLN VIAL 10 MG UPD (16:03)
[2023-08-26] MEDS: methylPREDNISolone SUCC 125 MG VIAL IVP (16:04)
[2023-08-26] MEDS: Normal Saline Flush 10 ML SYR IVP (16:05)
[2023-08-26] MEDS: Albuterol HFA 8 GM 60 PUFF INH IH (17:25)
[2023-08-26] MEDS: Doxycycline Hyclate 100 MG CAP PO (17:25)
[2023-08-26] MEDS: Doxycycline Hyclate 100 MG, 2 CAPS/BTL PO (17:26)
== END 2023-08-26 17:32 | disposition home or self-care (01) ==
PROVIDERS: Emergency Provider Emergency Medicine; PCP Nurse Practitioner Family
DX: J18.9 Pneumonia, unspecified organism; J06.9 Acute upper respiratory infection, unspecified; R06.02 Shortness of breath; J45.909 Unspecified asthma, uncomplicated; Z79.899 Other long term (current) drug therapy; E78.5 Hyperlipidemia, unspecified
CPT/HCPCS: 36415; 80053; 93005; 94640; 96374; 99285; 71046; 83735; 83880; 84484; 85025; 93010; 99284; J2930; J7613

== ENCOUNTER → 2024-03-14 05:08 | Outpatient (CLI) | payer BC, SELFPAY ==
--- NOTE | 2024-03-14 13:45 | DI.CT_ITS ---
Exam(s) CT CHEST WO EXAM: CT CHEST WO CLINICAL HISTORY: chronic cough with asthma,J45.909. TECHNIQUE: Multi planar reconstructions were performed. CONTRAST MATERIAL: None COMPARISON: CR XR CHEST 2V PA LATERAL from 08/26/2023 FINDINGS: CHEST: LUNGS: There are mild benign-appearing increased markings in the anterior basal segment of the left l ower lobe. No ominous pulmonary nodules. No pleural effusions. MEDIASTINUM: There is no obvious hilar nor mediastinal adenopathy. Partially visualized thyroid appea rs slightly prominent size.No obvious axillary adenopathy CARDIAC: Heart size is normal. There is no pericardial effusion.Caliber of the thoracic aorta is wit hin normal limits. VISUALIZED UPPER ABDOMEN: No adrenal masses. No splenomegaly. The gallbladder surgically absent. OSSEOUS: No significant osseous lesions.. IMPRESSION: 1. Minimal findings as described above. 2. No significant infiltrates nor pleural effusions. No ominous pulmonary nodules. RADIATION DOSE DELIVERED: 873.29mGy.cm Total DLP DATA REPOSITORY: All CT scans at this facility are submitted to the National Radiology Data Registry (NRDR) Dose Index Registry (DIR) with the [employer] (ACR). RADIATION OPTIMIZATION: All CT scans at this facility use at least one of these dose optimization te chniques: automated exposure control; mA and/or kV adjustment per patient size (includes targeted exa ms where dose is matched to clinical indication); or iterative reconstruction.
[2024-03-14] MEDS: Inhaler, Assist Device 1 EACH MC (16:04)
[2024-03-14] MEDS: Levalbuterol HFA 15 GM INH 4 PUFF IH (16:04)
== END ==
PROVIDERS: PCP Family Medicine; Visit Provider Physician Assistant Surgical
DX: J45.909 Unspecified asthma, uncomplicated (principal); K21.9 Gastro-esophageal reflux disease without esophagitis
CPT/HCPCS: 71250; 94060; 94726; 94729

== ENCOUNTER 2024-03-14 16:31 | Outpatient (CLI) | payer BC, SELFPAY ==
[2024-03-14 22:19] LABS: IgE 159 IU/mL (<158)
--- NOTE | 2024-03-15 09:01 | PFT_ITS ---
Date of service: 03/14/24 Time of Service: 14:59 Pulmonary Function Test Result Indications: Asthma Interpretation Spirometry: There is no airflow limitation. There is a bronchodilator response. There is restrictive spirometry. Lung Volumes: Normal lung volumes Diffusion Capacity: Normal diffusion Airway Pressure: Normal airways resistance Impression Normal pulmonary function testing. Restrictive spirometry is likely pseudo- restriction due to elevated BMI. Clinical Correlation therefore is recommended.
== END 2024-03-14 16:32 | disposition home or self-care (01) ==
LOC: LBO 16:32
PROVIDERS: PCP Family Medicine; Visit Provider Physician Assistant Surgical
DX: J45.909 Unspecified asthma, uncomplicated (principal)
CPT/HCPCS: 36415; 82785

== ENCOUNTER 2025-05-02 13:13 | Outpatient (REF) | payer OTHER, SELFPAY ==
[2025-05-02 15:47] LABS: HCT 43.2 % (36.0-46.0); HGB 14.1 g/dL (11.2-15.7); MCH 29.1 pg (27.0-33.0); MCHC 32.6 % (32.0-36.0); MCV 89 fL (80-95); MPV 10.0 fL (8.0-11.0); Platelet Count 332 10^3/uL (130-400); RBC 4.84 10^6/uL (3.93-5.22); RDW 13.2 % (11.7-14.6); RDW-SD 42.8 fL; WBC 6.72 10^3/uL (4.4-10.8)
[2025-05-02 16:28] LABS: ALT 50 U/L (14-59); AST 29 U/L (15-37); Albumin 3.8 g/dL (3.4-5.0); Alkaline Phosphatase 133 U/L (46-116); Anion Gap 11.0 mmol/L (3-11); BUN 15 mg/dL (7-18); Bilirubin, Total 0.6 mg/dL (0.2-1.0); CO2 26.0 mmol/L (21.0-32.0); Calcium 9.2 mg/dL (8.5-10.1); Calculated LDL 180 mg/dL (<100); Chloride 104 mmol/L (98-107); Cholesterol 272 mg/dL (<200); Estimated GFR 77.88 (mL/min/1.73m2); Glucose 110 mg/dL (74-106); HDL Cholesterol 47 mg/dL (>or=50); Potassium 4.3 mmol/L (3.5-5.1); Sodium 141 mmol/L (136-145); TSH 1.37 uIU/mL (0.36-3.74); Total Protein 7.4 g/dL (6.4-8.2); Triglyceride 229 mg/dL (<150)
[2025-05-02 16:49] LABS: Hemoglobin A1C 5.9 % (<5.7)
[2025-05-03 10:33] LABS: Hepatitis C Ab w Rflx HCV PCR Negative (Negative)
== END 2025-05-02 13:14 | disposition home or self-care (01) ==
LOC: NCHCN 13:13
PROVIDERS: PCP Family Medicine; Visit Provider Nurse Practitioner Family
DX: Z00.00 Encounter for general adult medical examination without abnormal findings (principal); Z13.1 Encounter for screening for diabetes mellitus
CPT/HCPCS: 80053; 80061; 85027; 86803; 83036; 84443

== ENCOUNTER 2025-07-10 02:37 | Outpatient (CLI) | payer OTHER, SELFPAY ==
--- NOTE | 2025-07-10 15:12 | DI.MAMMO_ITS ---
Exam(s) MAMMO SCREENING EXAM: MAMMO SCREENING CLINICAL HISTORY: SCREENING MAMMO Z12.31 TECHNIQUE: Bilateral full field digital CC and MLO mammographic images were obtained with 3D tomosynthesis and utilizing computer aided detection (CAD). COMPARISON: Comparison is made with prior examinations. FINDINGS: Masses/Architectural Distortion: No suspicious masses or areas of architectural distortion are present. The nodule in the lower inner quadrant of the left breast has shown interval decrease in size. Microcalcifications: No suspicious pleomorphic-type are seen. Skin Thickening/Nipple Retraction: None. IMPRESSION: 1. No significant interval change with no specific features of malignancy noted. 2. Unless there is more urgent need, screening mammography is recommended, as per [employer] [employer] guidelines. BI-RADS Category 2 - Benign Findings Breast Density - Category B - There are scattered areas of fibroglandular density. Breast density Category C or D implies that the patient has dense breast tissue. Dense breast tissue can make it harder to find cancer on a mammogram. Dense breast tissue is also associated with an increased risk of breast cancer. This information about the result of the mammogram report was provided to the patient to raise their awareness. Use this report when you speak with the patient about their risks for breast cancer, which includes their family history. At that time, you may recommend additional screening tests (Ultrasound or MRI) as these tests may add significant information. A negative radiographic report should not delay biopsy if a dominant or clinically suspicious mass is present. Up to ten percent of cancers are not identified on mammography. A negative report may reinforce clinical impression. Adenosis and dense breasts may obscure an underlying neoplasm. False positive reports average 6 to 10%. Patient will receive a letter notifying them of these results.
== END 2025-07-10 02:57 ==
LOC: DI 02:37
PROVIDERS: PCP Family Medicine; Visit Provider Nurse Practitioner Family
DX: Z12.31 Encounter for screening mammogram for malignant neoplasm of breast (principal)
CPT/HCPCS: 77063; 77067

== ENCOUNTER 2025-08-15 09:55 | Day surgery (SDC) | payer OTHER, SELFPAY ==
--- NOTE | 2025-08-14 20:16 | W.PM.DSUDISC ---
Date of service: 08/15/25 Discharge Plan Disposition Patient Disposition: Home Condition: Good Discharge Details Reason For Visit: EGD Attending Provider: Edgar Bacon Primary Care Provider: Lucita Aponte Home Meds and New Rx's Prescriptions: Continued albuterol sulfate 2.5 mg /3 mL (0.083 %) solution for nebulization 2.5 mg inhalation Q4H PRN Dupixent Pen 300 mg/2 mL pen injector 300 mg subcut Q2W Qty: 4 12RF duloxetine 30 mg capsule,delayed release(DR/EC) 30 mg PO DAILY esomeprazole magnesium [address] for susp in packet 40 mg PO DAILY Rx Instructions: take for 90 days omeprazole 40 mg capsule,delayed release(DR/EC) 40 mg PO DAILY cholecalciferol (vitamin D3) 25 mcg (1,000 unit) capsule 25 mcg PO DAILY meloxicam 15 mg tablet 15 mg PO DAILY PRN All Day Allergy (cetirizine) 10 mg capsule 10 mg PO DAILY PRN budesonide-formoterol [Symbicort] 160-4.5 mcg/actuation HFA aerosol inhaler 2 puff inhalation BID montelukast [Singulair] 10 MG tablet 10 mg PO DAILY duloxetine 60 mg capsule,delayed release(DR/EC) 60 mg PO DAILY Patient Comments: TAKE 1 CAPSULE BY MOUTH DAILY Discharge Instructions Instructions: Esophagitis Additional Instructions: Minnie, was good seeing you today, and hope you feel well after the procedure. Things went smoothly. The upper portion of your esophagus is totally normal. I did not see any evidence of narrowing, or anything out of the ordinary here. There is a 5 cm segment of esophagus, almost right in the middle where there is some mild irritation, and plaque-like appearance. To the naked eye, this seems most consistent with esophageal candidiasis, which is a type of infection that can occur in the esophagus. This would certainly account for some of your symptoms. I did some biopsies of this to see if will shed any light on the diagnosis. If it does nurse outreach case manager to be esophageal candidiasis, then we will treat you with an antifungal medication to see if that changes your symptoms. There are some changes in the lower portion of the esophagus that seem consistent with chronic reflux, which is what I would expect from your previous EGD. There is a small focus of ulceration in this area as well. I did several biopsies of this area to evaluate for Harris's esophagus. I did not see any discrete strictures, or tight spots that needed to be stretched open. In fact, my camera passed with ease down into your stomach. There are a few polyps within the stomach, but nothing that is at all worrisome. Interestingly, you have quite a bit of bile in your stomach. This is not necessarily a dangerous or problematic thing, it is just a little bit atypical for patients that have been fasting. In the big picture, it may be that some reflux of this bile is contributing to some of the inflammation in your esophagus. For right now, I do not want to make any other changes. Would like to see what the biopsy results show (this will take a few days) before making any changes. Assuming that the biopsies are all relatively normal, then I be inclined to start you on a medication to help neutralize the bile acid in your stomach (which is a little bit different than the proton pump inhibitor such as omeprazole and esomeprazole) to see if that impacts the symptoms. As we discussed beforehand, I do think there is probably a role for a swallow study as well. But lets take this 1 step at a time. If you need anything at all, please do not hesitate to call, otherwise I will let you know soon as I get the biopsy results. 1. If tolerated, consume a soft, low fiber diet for 1-2 days. [address] Do not drive, drink alcohol, operate machinery, make critical decisions, or do activities that require coordination or balance for 24 hours. 3. You may experience a sore throat for 24 to 48 hours. You may use throat lozenges or gargle with warm salt water to relieve the discomfort. 4. Because air was put into your stomach during the procedure, you may experience some belching. 5. Go directly to the emergency room if you notice any of the following: Develop chills (warm to touch), or if you have a thermometer and your temperature is above 101 Difficulty breathing or difficultly swallowing Persistent vomiting Severe abdominal pain, other than gas cramps Severe chest pain Black, tarry stools Any bleeding – exceeding one tablespoon 6. Call your physician if the site where your intravenous was started becomes red, swollen, painful, and warm to touch. 7. Your physician has reviewed your pre-procedure medications. Please continue to take those medications as previously ordered. You will be given specific information/education regarding any changes to your medications before leaving. Stand Alone Forms: Portal Information Activity:: Activity as Tolerated Diet:: As Tolerated Discharge Orders Discharge Orders: Discharge Order (Routine); Ordered 08/14/25 Ordered By: Edgar Bacon DS: Diagnosis Discharge Diagnosis (1) Dysphagia: Status: Acute Asessment and Plan: Follow-up on biopsy results
--- NOTE | 2025-08-14 20:18 | ENDO_ITS ---
Date of service: 08/15/25 Time of Service: 12:21 Endoscopy Report DATE OF PROCEDURE: 08/15/25 PRE-OP DIAGNOSIS: Dysphagia POST-OP DIAGNOSIS: other (Esophagitis, Harris's esophagus) PROCEDURE: EGD with biopsies SURGEON: Edgar Bacon ANESTHESIA TYPE: General:No Airway ESTIMATED BLOOD LOSS: 5 PATHOLOGY: other (Nondirected biopsies of gastric body to rule out Helicobacter pylori. Four-quadrant biopsies of GE junction to rule out Harris's esophagus; esophageal ulcer biopsy, esophageal biopsies) COMPLICATIONS: None DISPOSITION: same day INDICATIONS: Minnie is a 50 year old woman with a possible history of esophageal stricture who has had longstaning GERD and recent dysphagia PROCEDURE START TIME: : PROCEDURE END TIME: : FINDINGS: Plaque-like esophagitis; short segment Harris's esophagus PROCEDURE DESCRIPTION: After the initiation of anesthesia, and with the assistance of a bite block, I advanced a standard gastroscope through the mouth past the hypopharynx and into the esophagus. Under the direct vision of the scope, I advanced down the esophagus towards the stomach. The upper esophagus is normal. Beginning around 30 cm past the incisors are plaque-like changes that have the gross appearance of candidal esophagitis. This extends down to about 35 cm past the incisors. At this point, the mucosa looks normal again. The GE junction occurs just around 40 cm past the incisors. Narrowband imaging was used to assist with the analysis here. There is a small focus of ulceration just proximal to the Z- line. There is very mild irregularity of the Z-line that does seem consistent with Harrsi's esophagus. This is less than 1 cm in its longest dimension. I can advance down into the stomach with ease. There is quite a bit of bile in the stomach. This was all suctioned clear. The stomach was then completely filled, and retroflexion was performed. I did not appreciate any hiatal herniation. There are a few diminutive gastric polyps all restricted to the gastric body and cardia. There are none within the antrum. Duodenum is normal-appearing. I brought the camera back up into the stomach and perform some nondirected biopsies of the gastric body to rule out Helicobacter pylori. I then brought the camera back up to the GE junction. Four-quadrant biopsies were performed in an effort to incorporate the pathologic tissue to evaluate for Harris's esophagus. A separate biopsy of the small area of ulceration was performed also with cold forceps. There was minimal bleeding from any of these biopsy sites. Next, I brought the camera back into the esophageal plaques. Cold forceps biopsies were performed of this as well. There was no significant bleeding here. I then advanced the camera back down into the stomach and emptied of all the insufflation. The camera was then removed along the length of the esophagus 1 last time. I did not appreciate any other esophageal pathology. At no point did I see any evidence of significant stricturing.
[2025-08-15 10:15] VITALS: BP 158/85; PULSE 75; RESP 16; TEMP 36.1; O2SAT 97
[2025-08-15] MEDS: Lactated Ringers 1,000 ML 80 ML IV (10:45)
--- NOTE | 2025-08-15 10:58 | W.ANESPRE ---
General Info Date of Service Date Performed: 08/15/25 Height: 5 ft 6 in Weight: 133 kg Body Mass Index (BMI): 47.3 Surgical Procedure: Operation Date: 08/15/25 12:35 Proposed Procedure Side Surgeon p Gastroscopy Edgar Bacon MD Meds Allergies and Home Medications Allergies Allergy/AdvReac Type Severity Reaction Status Date / Time No Known Allergies Allergy Verified 08/15/25 10:36 Home Medication Medication Instructions Recorded montelukast 10 mg tablet 10 mg PO DAILY 05/18/17 (Singulair) duloxetine 60 mg capsule,delayed 60 mg PO DAILY 11/22/21 release cholecalciferol (vitamin D3) 25 25 mcg PO DAILY 09/01/22 mcg (1,000 unit) capsule omeprazole 40 mg capsule,delayed 40 mg PO DAILY 09/01/22 release meloxicam 15 mg tablet 15 mg PO DAILY PRN 06/29/23 budesonide-formoterol HFA 160 2 puff inhalation BID 02/12/24 mcg-4.5 mcg/actuation aerosol inhaler (Symbicort) cetirizine 10 mg capsule (All Day 10 mg PO DAILY PRN 02/12/24 Allergy (cetirizine)) albuterol sulfate 2.5 mg/3 mL 2.5 mg inhalation Q4H PRN 02/22/24 (0.083 %) solution for nebulization dupilumab 300 mg/2 mL subcutaneous 300 mg (2 mL) subcut Q2W #4 mL 02/25/24 pen injector (Dupixent) duloxetine 30 mg capsule,delayed 30 mg PO DAILY 08/09/25 release esomeprazole magnesium 40 mg 40 mg PO DAILY 08/09/25 granules delayed release for susp Current Visit Medications: Current Medications Generic Name Dose Route Start Last Admin Trade Name Freq PRN Reason Stop Dose Admin Ringer's Solution 1,000 mls @ 80 mls/hr 08/15/25 06:00 08/15/25 10:45 IV 08/15/25 23:59 80 mls/hr INFUSION RADHA Administration IV Miscellaneous Supplies 1 each 08/15/25 06:00 Iv Access IV 08/15/25 23:59 DIRECTED RADHA Sodium Chloride 0 ml 08/15/25 06:00 Normal Saline Flush 10 Ml Syr IV 08/15/25 23:59 PRN PRN Sodium Chloride 0 ml 08/15/25 06:00 Normal Saline 10 Ml Vial IJ 08/15/25 23:59 DIRECTED PRN Sterile Water 0 ml 08/15/25 06:00 Water,Injection,Sterile 10 Ml Vial IJ 08/15/25 23:59 DIRECTED PRN PFSH Active Problems Active Problems: Problem Status Onset Code Prediabetes Acute R73.03 Essential hypertension Acute I10 Dysphagia Acute R13.10 Bunion Acute M21.619 Hyperhidrosis Acute R61 Fatigue Acute R53.83 Joint pain Acute M25.50 Adjustment disorder Chronic F43.20 Arthritis of left knee Acute M17.12 Obesity Chronic 14 E66.9 Diverticula of colon Acute K57.30 Polyarthralgia Chronic M25.50 Screening for colon cancer Acute Z12.11 Grief Chronic F43.21 Hyperlipidemia Acute E78.5 Screening for malignant neoplasm of colon performed Acute Z12.11 Medical History Medical History Endometrioma of ovary (01/07/16) complex mass on CT and US 01/03/16 in ER; s/p bilat oopherectomy, L salpingectomy via laparotomy on E/P HRT Asthma GERD (gastroesophageal reflux disease) Migraine Shoulder pain, left Menorrhagia Abnormal uterine bleeding Surgical History Surgical History History of colonoscopy (~04/2023) H/O bilateral salpingectomy History of section S/P hysterectomy partial S/P cholecystectomy Tobacco Smoking/Tobacco Use Status: Never Passive smoking exposure: No Alcohol Alcohol Intake: current Alcohol intake frequency: holidays/special occasions only Substance Use Substance use: Never Substance use type: does not use Vital Signs and Lab Results Vital Signs Most Recent Vital Signs in EMR: Most Recent Vital Signs Temp Pulse Resp BP Pulse Ox 36.1 C L 75 16 158/85 H 97 08/15/25 10:15 08/15/25 10:15 08/15/25 10:15 08/15/25 10:15 08/15/25 10:15 Imaging and Studies Imaging and Studies Study information below may be from another EMR and interpreted by another provider. Please see original notes in EMR for more complete details. Pulmonary Function Summary: 06/20: normal. Anesthesia Assessment and Plan Anesthesia History Personal History: No History of Anesthesia Complications Family History: No Family History of Anesthesia Complications Exercise Tolerance Exercise Tolerance: Metabolic Equivalents>4 Pertinent Negatives Pertinent Negatives: No Symptoms of GERD (RX) Cardiac & Pulmonary Exam Cardiac Exam: Normal S1/S2 Heart Sounds Pulmonary Exam: Clear Bilateral Breath Sounds Implantable Cardiac Device Does patient have a Pacemaker or an ICD?: No Airway Exam Known Difficult Airway: No Mallampati Class: 3 Mouth Opening: Narrow (< 3cm) Thyromental Distance: Less than 3 cm Neck Range of Motion: Full ROM Neck Circumference: Thick Teeth Condition: Normal Dentition ASA Classification ASA Score: ASA 2 Emergency Case?: No NPO Status NPO Status: NPO Clears >2 hours, Solids >8 hours Status Status: History of Hysterectomy Anesthesia Plan Resuscitation Status: Full Code Anesthesia Technique: General Anesthesia Airway Planned: Natural Airway Monitors Used: Standard Monitors
[2025-08-15 10:59] VITALS: BMI 47.3
--- NOTE | 2025-08-15 11:52 | STOM_PTH ---
PATIENT: Minnie Osman LOC: [facility] U#:[id number] AGE/SX: 50/F ROOM: RE08/15/[address]: Edgar Bacon MD : 1975 BED: DIS: 08/15/2025 SPEC #: [id number] RECD: 08/15/25 13:00 STATUS: PRISCILLA BROWN #: [id number] NICO: 08/15/25 11:[address]: Edgar Bacon DEPT: Surgical Specimen RECD BY: Aleena Flores ENTERED: 08/15/25 13:01 SP TYPE: STOMACH OTHR DR: Lucita Aponte Tissues: 1 - STOMACH BIOPSY 2 - ESOPHAGUS BIOPSY 3 - ESOPHAGUS BIOPSY 4 - ESOPHAGUS BIOPSY Procedures: GROSS AND MICRO LEVEL 4 Comments: [id number]
[2025-08-15 12:05] VITALS: BP 125/74; PULSE 85; RESP 20; TEMP 36.5; O2SAT 94
--- NOTE | 2025-08-15 12:07 | W.ANESPOSTOP ---
Postoperative Evaluation Date, Time and Location Date Performed: 08/15/25 Time Performed: 12:09 Patient Location: Day Surgery Unit Vital Signs Most Recent Imported Vital Signs: Most Recent Vital Signs Temp Pulse Resp BP Pulse Ox 36.1 C L 75 16 158/85 H 97 08/15/25 10:15 08/15/25 10:15 08/15/25 10:15 08/15/25 10:15 08/15/25 10:15 Pain Score Most Recent Pain Score: Most Recent Pain Score Pain Level 0 08/15/25 10:15 Assessment Mental Status: Awake (Alert & Oriented to Patient Baseline) Airway and Respiratory Function: Patent airway with normal (patient baseline) respiratory exam Cardiovascular Function: Hemodynamically Stable Hydration Status: Adequately Hydrated Nausea & Vomiting: No Nausea or Vomiting Pain: Pt. Denies Any Pain Peripheral Nerve Block: Patient did not receive a nerve block
[2025-08-15 12:36] VITALS: BP 132/72; PULSE 74; RESP 18; TEMP 36.3; O2SAT 96
== END 2025-08-15 12:50 | disposition home or self-care (01) ==
LOC: SUR 09:55
PROVIDERS: PCP Family Medicine; Visit Provider Surgery
PROC: 0DJ68ZZ Inspection of Stomach, Via Natural or Artificial Opening Endoscopic (ICD-10-PCS; CPT 43235; principal; 2025-08-15 12:30)
DX: R13.10 Dysphagia, unspecified (principal); K22.70 Barrett's esophagus without dysplasia; K31.89 Other diseases of stomach and duodenum
CPT/HCPCS: 43239; 88305; J2003; J2704